=== PATIENT | male | born 1935 | race Caucasian/White ===

== ENCOUNTER 2016-06-03 12:18 | Outpatient (CLI) | payer MEDICARE, OTHER | END 2016-06-03 12:19 | disposition home or self-care (01) | DX: E78.5 Hyperlipidemia, unspecified (principal) ==

== ENCOUNTER 2017-02-03 00:03 | Outpatient (CLI) | payer MEDICARE, OTHER | END 2017-02-03 00:04 | disposition EMS.NT | LOC: EMS 00:03 | PROVIDERS: ATTEND Surgery | DX: Z03.89 Encounter for observation for other suspected diseases and conditions ruled out (principal); W06.XXXA Fall from bed, initial encounter; Y92.003 Bedroom of unspecified non-institutional (private) residence as the place of occurrence of the external cause ==

== ENCOUNTER 2017-02-03 10:45 | Outpatient (CLI) | payer MEDICARE, OTHER | END 2017-02-03 10:46 | disposition critical access hospital (66) | LOC: EMS 10:45 | PROVIDERS: ATTEND Surgery | DX: R53.1 Weakness (principal); R39.12 Poor urinary stream; W06.XXXA Fall from bed, initial encounter; Y92.003 Bedroom of unspecified non-institutional (private) residence as the place of occurrence of the external cause | CPT/HCPCS: A0425; A0429 ==

== ENCOUNTER 2017-02-03 11:10 | Emergency (ER) | payer MEDICARE, OTHER ==
[2017-02-03] MEDS ORDERED: SODIUM CHLORIDE 0.9% 500 ML IV ONE (11:28)
[2017-02-03 12:05] LABS: ALBUMIN/GLOBULIN RATIO 1.3 (1.0-2.2); BILIRUBIN,TOTAL 4.1 mg/dL (0.2-1.0); CALCIUM 8.6 mg/dL (8.5-10.3); CREATININE 1.2 mg/dL (0.6-1.2); POTASSIUM 3.5 mmol/L (3.5-5.0); TOTAL PROTEIN 6.6 g/dL (6.7-8.2)
[2017-02-03] MEDS ORDERED: SODIUM CHLORIDE 0.9% 1,000 ML IV ONE (12:32)
[2017-02-03 12:58] LABS: BASOPHILS % (AUTO) 0.3 %; EOSINOPHILS # (AUTO) 0.1 10^3/uL (0.0-0.7); EOSINOPHILS % (AUTO) 0.4 %; HCT - HEMATOCRIT 38.1 % (42.0-52.0); LYMPHOCYTES # (AUTO) 0.8 10^3/uL (1.5-3.5); LYMPHOCYTES % (AUTO) 6.3 %; MEAN CORPUSCULAR HGB CONC 34.1 g/dL (32.0-36.0); MEAN PLATELET VOLUME 8.3 fL (7.4-11.4); MONOCYTES % (AUTO) 7.1 %; NEUTROPHILS # (AUTO) 11.5 10^3/uL (1.5-6.6); NEUTROPHILS % (AUTO) 85.9 %; RED BLOOD COUNT 4.19 10^6/uL (4.70-6.10); UNCORRECTED WHITE BLOOD COUNT 13.3 x10^3/uL; WHITE BLOOD COUNT 13.3 x10^3/uL (4.8-10.8)
--- NOTE | 2017-02-03 14:05 | ED Physician Documentation ---
History of Present Illness - Stated complaint Stated Complaint: WEAKNESS - Chief complaint Chief Complaint: General - History obtained from History obtained from: Patient, Family - History of Present Illness Timing: Yesterday Pain level max: 0 Pain level now: 0 Improved by: nothing Worsened by: nothing - Additonal information Additional information: Patient is an 81-year-old male who presents to the emergency department with increasing weakness over the past 24 hours. States he has had increasing urinary frequency and dysuria, similar to prior UTIs in the past. Has had a decreased appetite as well. No abdominal pain. No fevers. No vomiting. Has been on penicillin recently for a potential dental infection following a filling. States that he had a hard time getting up out of bed today and had to call the ambulance to help him up. Review of Systems Constitutional: denies: Fever, Chills Ears: denies: Ear pain Nose: denies: Rhinorrhea / runny nose, Congestion Respiratory: denies: Cough GI: denies: Abdominal Pain, Nausea, Vomiting, Diarrhea : reports: Dysuria, Frequency, Hesitancy Skin: denies: Rash Musculoskeletal: denies: Neck pain, Back pain PD PAST MEDICAL HISTORY - Past Medical History Cardiovascular: Coronary artery disease Respiratory: Sleep apnea, CPAP use Neuro: None Endocrine/Autoimmune: Type 2 diabetes GI: Colon polyps : Benign prostate hypertrophy HEENT: None Psych: Claustrophobia Musculoskeletal: Gout Derm: - Past Surgical History Past Surgical History: Yes General: Colonoscopy Cardiovascular: Coronary stent HEENT: Cataracts, Tonsil/Adenoidectomy Derm: Skin cancer surgery - Present Medications Home Medications: Ambulatory Orders Medication Instructions Recorded Confirmed Aspirin 325 mg PO DAILY 03/18/14 02/03/17 Atorvastatin [Lipitor] 20 mg PO DAILY 03/18/14 02/03/17 Chlorthalidone 25 mg PO DAILY 03/18/14 02/03/17 Cholecalciferol (Vitamin D3) 1,000 mg PO DAILY 03/18/14 02/03/17 [Vitamin D] Cyanocobalamin (Vitamin B-12) 1,000 mcg IM Q30D 03/18/14 02/03/17 [B-12] Metoprolol Tartrate 50 mg PO BID 03/18/14 02/03/17 Penicillin Vk 4 tab PO QID 02/03/17 02/03/17 Sulfamethox/Trimeth 800/160 1 each PO BID #14 tablet 02/03/17 [Bactrim Ds 800/160] - Allergies Allergies/Adverse Reactions: Allergies Allergy/AdvReac Type Severity Reaction Status Date / Time No Known Drug Allergies Allergy Verified 02/03/17 11:21 - Social History Does the pt smoke?: No Smoking Status: Never smoker Does the pt drink ETOH?: Yes Does the pt have substance abuse?: No - Immunizations Immunizations are current?: No Immunizations: TDAP >10years/unknown - POLST Patient has POLST: No PD ED PE NORMAL - Vitals Vital signs reviewed: Yes - General General: Alert and oriented X 3, No acute distress - HEENT HEENT: Moist mucous membranes - Neck Neck: Supple, no meningeal sign - Cardiac Cardiac: RRR, Strong equal pulses - Respiratory Respiratory: No respiratory distress, Clear bilaterally - Abdomen Abdomen: Soft, Non tender, Non distended - Back Back: No CVA TTP, No spinal TTP - Derm Derm: Warm and dry - Neuro Neuro: Alert and oriented X 3 - Psych Psych: Normal mood, Normal affect Results - Vitals Vitals: Vital Signs - 24 hr 02/03/17 02/03/17 02/03/17 11:16 12:19 14:03 Temperature 36.5 C Heart Rate 90 84 69 Respiratory 16 16 16 Rate Blood Pressure 139/64 H 138/55 H 133/51 H O2 Saturation 97 96 98 02/03/17 02/03/17 15:06 16:17 Temperature 36.9 C Heart Rate 80 72 Respiratory 16 16 Rate Blood Pressure 131/97 H 132/74 H O2 Saturation 98 99 Oxygen O2 Source [With Activity] Room air O2 Source [Without Activity] Room air O2 Source Room air - Labs Labs: Laboratory Tests 02/03/17 02/03/17 02/03/17 11:40 11:40 14:00 WBC 13.3 H RBC 4.19 L Hgb 13.0 L Hct 38.1 L MCV 91.0 MCH 31.0 MCHC 34.1 RDW 15.0 Plt Count 132 MPV 8.3 Neut # 11.5 H Lymph # 0.8 L [place] # 1.0 Eos # 0.1 Baso # 0.0 Absolute Nucleated RBC 0.00 Nucleated RBC % 0.0 Sodium 132 L Potassium 3.5 Chloride 98 L Carbon Dioxide 25 Anion Gap 9.0 BUN 22 H Creatinine 1.2 Estimated GFR (MDRD) 58 L Glucose 183 H Calcium 8.6 Total Bilirubin 4.1 H AST 17 ALT 15 Alkaline Phosphatase 66 Total Protein 6.6 L Albumin 3.7 Globulin 2.9 Albumin/Globulin Ratio 1.3 Lipase 23 Urine Color YELLOW Urine Clarity HAZY Urine pH 6.0 Ur Specific [place] 1.010 Urine Protein NEGATIVE Urine Glucose (UA) NEGATIVE Urine Ketones NEGATIVE Urine Occult Blood NEGATIVE Urine Nitrite POSITIVE H Urine Bilirubin NEGATIVE Urine Urobilinogen 0.2 (NORMAL) Ur Leukocyte Esterase TRACE H Urine RBC 0-5 Urine WBC 11-25 H Ur Squamous Epith Cells FEW Squamous Urine Bacteria Many H Ur Microscopic Review INDICATED Urine Culture Comments INDICATED PD MEDICAL DECISION MAKING - ED course Complexity details: reviewed results, re-evaluated patient, considered differential, d/w patient, d/w family ED course: Patient is an 81-year-old male who presents to the emergency department with weakness and is found to have a UTI. Given IV Rocephin. Also given IV fluids for dehydration. He is tolerating p.o. without difficulty and ambulating at his baseline. No evidence of sepsis or pyelonephritis. Will place on antibiotics and follow-up with his PCP. Patient and family counseled regarding signs and symptoms for which I believe and urgent re-evaluation would be necessary. Patient with good understanding of and agreement to plan and is comfortable going home at this time This document was made in part using voice recognition software. While efforts are made to proofread this document, sound alike and grammatical errors may occur. Departure - Departure Disposition: 01 Home, Self Care Clinical Impression: Dehydration, Hyponatremia UTI (urinary tract infection) Qualifiers: Urinary tract infection type: acute cystitis Hematuria presence: without hematuria Qualified Code(s): N30.00 - Acute cystitis without hematuria Condition: Good Instructions: ED UTI Cystitis Male Follow-Up: ALEC MASON [Primary Care Provider] - Within 1 week Prescriptions: Sulfamethox/Trimeth 800/160 [Bactrim Ds 800/160] 1 each PO BID #14 tablet Comments: Take all antibiotics until gone. Return if you worsen. Drink plenty of fluid. Discharge Date/Time: 02/03/17 16:17
[2017-02-03 14:31] LABS: BILIRUBIN,URINE NEGATIVE (NEGATIVE)
[2017-02-03 14:32] LABS: UA w/ MICROSCOPIC CHARGE YES
[2017-02-03 14:41] LABS: UR CULTURE IF IND INDICATED
[2017-02-03] MEDS ORDERED: cefTRIAXone 1 GM VIAL IVP STA (15:20)
[2017-02-03] MEDS ORDERED: cefTRIAXone 1 GM VIAL ONE (15:28)
[2017-02-03 16:17] VITALS: BP 132/74
== END 2017-02-03 16:17 | disposition home or self-care (01) ==
LOC: ED 11:10
DX: E86.0 Dehydration (principal); E87.1 Hypo-osmolality and hyponatremia; N30.00 Acute cystitis without hematuria; I25.10 Atherosclerotic heart disease of native coronary artery without angina pectoris; G47.30 Sleep apnea, unspecified; E11.9 Type 2 diabetes mellitus without complications; N40.0 Benign prostatic hyperplasia without lower urinary tract symptoms; M10.9 Gout, unspecified; Z85.828 Personal history of other malignant neoplasm of skin; Z86.010 Personal history of colon polyps; Z79.82 Long term (current) use of aspirin
CPT/HCPCS: 36415; 80053; 81001; 81003; 83690; 85025; 87086; 96361; 96374; 99283; 99284

== ENCOUNTER 2017-02-04 11:13 | Outpatient (CLI) | payer MEDICARE, OTHER | END 2017-02-04 11:14 | disposition EMS.NT | LOC: EMS 11:13 | PROVIDERS: ATTEND Surgery | DX: Z03.89 Encounter for observation for other suspected diseases and conditions ruled out (principal); W18.11XA Fall from or off toilet without subsequent striking against object, initial encounter; Y92.002 Bathroom of unspecified non-institutional (private) residence as the place of occurrence of the external cause ==

== ENCOUNTER 2017-02-04 15:26 | Outpatient (CLI) | payer MEDICARE, OTHER | END 2017-02-04 15:27 | disposition short-term general hospital (02) | LOC: EMS 15:26 | PROVIDERS: ATTEND Surgery | DX: R53.1 Weakness (principal) | CPT/HCPCS: A0425; A0429; A0888 ==

== ENCOUNTER 2017-05-06 11:05 | Outpatient (CLI) | payer MEDICARE, OTHER | END 2017-05-06 11:06 | disposition home or self-care (01) | LOC: SC 11:05 | PROVIDERS: ATTEND Nurse Practitioner Family | DX: G47.33 Obstructive sleep apnea (adult) (pediatric) (principal) | CPT/HCPCS: 99214; G0463; 99212 ==

== ENCOUNTER 2018-04-21 09:11 | Outpatient (CLI) | payer MEDICARE, OTHER | END 2018-04-21 09:12 | disposition EMS.NT | LOC: EMS 09:11 | PROVIDERS: ATTEND Surgery | DX: R42 Dizziness and giddiness (principal); W18.30XA Fall on same level, unspecified, initial encounter; Y93.01 Activity, walking, marching and hiking; Y92.008 Other place in unspecified non-institutional (private) residence as the place of occurrence of the external cause ==

== ENCOUNTER 2018-05-12 10:45 | Outpatient (CLI) | payer MEDICARE, OTHER | END 2018-05-12 10:46 | disposition home or self-care (01) | LOC: SC 10:45 | PROVIDERS: ATTEND Nurse Practitioner Family | DX: G47.33 Obstructive sleep apnea (adult) (pediatric) (principal) | CPT/HCPCS: 99214; G0463; 99212 ==

== ENCOUNTER 2018-07-16 09:26 | Outpatient (CLI) | payer MEDICARE, OTHER ==
[2018-07-16 10:18] LABS: ALT ALANINE AMINOTRANSFERASE 18 IU/L (10-60); AST ASPARTATE AMINOTRANSFERASE 23 IU/L (10-42); CHOL/HDL RATIO 3.1 (<5.0); CHOLESTEROL 92 mg/dL; CK- CREATINE KINASE 22 IU/L (22-269); HDL CHOLESTEROL 30 mg/dL; LDL CHOLESTEROL,CALCULATED 38 mg/dL; LDL CHOLESTEROL,DIRECT 45 mg/dL; LDL/HDL RATIO 1.3 (<3.6); VLDL CHOLESTEROL 24 mg/dL
== END 2018-07-16 09:27 | disposition home or self-care (01) ==
LOC: LAB 09:26
PROVIDERS: ATTEND Internal Medicine Cardiovascular Disease
DX: I10 Essential (primary) hypertension (principal); E78.5 Hyperlipidemia, unspecified; I25.810 Atherosclerosis of coronary artery bypass graft(s) without angina pectoris
CPT/HCPCS: 36415; 80061; 82550; 83721; 84450; 84460

== ENCOUNTER 2018-12-14 09:37 | Outpatient (CLI) | payer MEDICARE, OTHER ==
--- NOTE | 2018-12-14 13:15 | XRAY Report ---
Reason: CHRONIC COUGH Procedure Date: 12/14/2018 Accession Number: [id number] / [id number] Procedure: XR - Chest 2 View X-Ray CPT Code: 87546 FULL RESULT: EXAM: CHEST RADIOGRAPHY EXAM DATE: 12/14/2018 10:26 AM. CLINICAL HISTORY: Chronic cough. COMPARISON: RIBS W/PA CHEST LT 03/23/2014 2:53 PM. CHEST 2 VIEW PA/LAT 03/18/2014 10:53 PM. TECHNIQUE: 2 views. FINDINGS: Lungs/Pleura: Lateral radiograph represents a relatively well-rounded hypodensity overlying the lower thoracic spine, retrocardiac region. Not well seen frontally. Remaining lung is clear on frontal radiograph. No pleural effusion or pneumothorax. Mediastinum: Heart and mediastinal contours are unchanged with increased calcifications of the aorta, mild cardiomegaly. Other: None. IMPRESSION: Interval development of a retrocardiac posterior opacity. While this may represent pneumonia, a posterior mediastinal or paraspinal mass may have this appearance. If the clinical scenario is not clear, recommend chest CT. RADIA
== END 2018-12-14 09:38 | disposition home or self-care (01) ==
LOC: DI 09:37
PROVIDERS: ATTEND Internal Medicine
DX: R05 Cough (principal); R91.8 Other nonspecific abnormal finding of lung field
CPT/HCPCS: 71046

== ENCOUNTER 2018-12-21 13:16 | Outpatient (CLI) | payer MEDICARE, OTHER ==
[2018-12-21] MEDS ORDERED: IOVERSOL 320 100 ML VIAL IVP ONE ×2 (13:34→14:03)
--- NOTE | 2018-12-21 14:58 | CT Report ---
Reason: ABN CXR, WT LOSS, COUGH Procedure Date: 12/21/2018 Accession Number: [id number] / [id number] Procedure: CT - CHEST W CPT Code: FULL RESULT: EXAM: CT CHEST EXAM DATE: 12/21/2018 01:49 PM. CLINICAL HISTORY: Abnormal chest x-ray, weight loss and cough. COMPARISONS: CT chest 11/29/2006-report only. TECHNIQUE: Routine helical CT imaging was performed through the chest. IV contrast: None. Reconstructions: Coronal and sagittal. In accordance with CT protocol optimization, one or more of the following dose reduction techniques were utilized for this exam: automated exposure control, adjustment of mA and/or KV based on patient size, or use of iterative reconstructive technique. FINDINGS: Lungs/Pleura: The chest x-ray finding is an approximate 5.7 x 5.7 cm spiculated pleural-based mass in the cgfdgeggs-ydyewpwe-gzirad right lower lobe. There is scattered bilateral scarring. No other focal suspicious abnormality. No pleural effusions. Mediastinum: There are multiple suspicious subcarinal metastatic lymph nodes in the approximate 16 mm maximal diameter range each. There is a suspicious right azygoesophageal node measuring 16 mm maximal diameter, and there is an approximate 9 mm diameter suspicious right hilar lymph node. Bones: Unremarkable. Visualized Abdomen: Cholelithiasis. No evidence of adrenal metastasis. No obvious hepatic mass. Other: None. IMPRESSION: 1. There is a 5.7 cm maximal diameter spiculated pleural-based mass in the vvfwzlxql-hcwevjav-irynun right lower lobe that would be amenable to transbronchial biopsy. 2. Suspicious right hilar, subcarinal and azygoesophageal recess mediastinal nodes. 3. No other significant abnormality. RADIA
== END 2018-12-21 13:17 | disposition home or self-care (01) ==
LOC: DI 13:16
PROVIDERS: ATTEND Internal Medicine
DX: R91.8 Other nonspecific abnormal finding of lung field (principal); R63.4 Abnormal weight loss
CPT/HCPCS: 71260; Q9967

== ENCOUNTER 2019-04-08 14:11 | Outpatient (CLI) | payer MEDICARE, OTHER ==
[2019-04-08 14:33] LABS: BASOPHILS % (AUTO) 0.4 %; EOSINOPHILS # (AUTO) 0.3 10^3/uL (0.0-0.7); EOSINOPHILS % (AUTO) 2.7 %; HGB - HEMOGLOBIN 11.6 g/dL (14.0-18.0); LYMPHOCYTES # (AUTO) 1.7 10^3/uL (1.5-3.5); LYMPHOCYTES % (AUTO) 15.3 %; MEAN CORPUSCULAR HEMOGLOBIN 29.7 pg (27.0-31.0); MEAN CORPUSCULAR HGB CONC 32.1 g/dL (32.0-36.0); MEAN CORPUSCULAR VOLUME 92.6 fL (80.0-94.0); MEAN PLATELET VOLUME 9.2 fL (7.4-11.4); MONOCYTES # (AUTO) 0.7 10^3/uL (0.0-1.0); MONOCYTES % (AUTO) 6.8 %; NEUTROPHILS # (AUTO) 8.1 10^3/uL (1.5-6.6); NEUTROPHILS % (AUTO) 74.3 %; PLT - PLATELET COUNT 237 10^3/uL (130-450); RED CELL DISTRIBUTION WIDTH 15.5 % (12.0-15.0); WHITE BLOOD COUNT 10.9 x10^3/uL (4.8-10.8)
[2019-04-08 14:47] LABS: ALBUMIN 3.4 g/dL (3.2-5.5); ALBUMIN/GLOBULIN RATIO 0.9 (1.0-2.2); BILIRUBIN,TOTAL 1.9 mg/dL (0.2-1.0); CALCIUM 9.4 mg/dL (8.5-10.3); CREATININE 1.1 mg/dL (0.6-1.2); TOTAL PROTEIN 7.1 g/dL (6.7-8.2)
[2019-04-08 14:58] LABS: INR 1.2 (0.8-1.2)
--- NOTE | 2019-04-08 15:09 | XRAY Report ---
Reason: STAGE 3 LUNG NONSMALL CELL Procedure Date: 04/08/2019 Accession Number: [id number] / [id number] Procedure: XR - Chest 2 View X-Ray CPT Code: 15372 Final Report FULL RESULT: EXAM: CHEST RADIOGRAPHY EXAM DATE: 04/08/2019 02:46 PM. CLINICAL HISTORY: Stage III lung nonsmall cell. COMPARISON: CHEST 2 VIEW 12/14/2018 9:42 AM CHEST W/ 12/21/2018 1:39 PM. TECHNIQUE: 2 views. FINDINGS: Lungs/Pleura: Redemonstration of medial right lung base opacity characterized as a mass on the recent CT. The left lung and aerated right lung otherwise demonstrate no superimposed edema or consolidation. There is no sizable pleural effusion or pneumothorax. Mediastinum: Stable appearance of the cardiomediastinal silhouette with mild cardiomegaly and calcifications of the aortic arch. Other: None. IMPRESSION: Redemonstration of known right lung mass without superimposed acute cardiopulmonary abnormality. RADIA
== END 2019-04-08 14:12 | disposition home or self-care (01) ==
LOC: LAB 14:11
PROVIDERS: ATTEND Internal Medicine Gastroenterology
DX: C34.90 Malignant neoplasm of unspecified part of unspecified bronchus or lung (principal)
CPT/HCPCS: 36415; 71046; 80053; 85025; 85610

== ENCOUNTER 2019-04-09 08:28 | Day surgery (SDC) | payer MEDICARE, OTHER ==
[2019-04-09] MEDS ORDERED: LACTATED RINGERS 1,000 ML IV ONE (08:35)
--- NOTE | 2019-04-09 09:25 | ANESTHESIA ---
Pre-Anesthesia VS, & Labs - Diagnosis Lung Cancer, stage 3 - Procedure placement of portacath Vital Signs: Temp Pulse Resp BP Pulse Ox 36.1 C L 81 16 124/72 99 04/09/19 08:41 04/09/19 08:41 04/09/19 08:41 04/09/19 08:41 04/09/19 08:41 Height 5 ft 9 in Weight (kg) 78.9 kg Body Mass Index 26.3 - NPO >8 hours - Lab Results Current Lab Results: Laboratory Tests 04/09/19 08:58: POC Whole Bld Glucose 105 H Home Medications and Allergies Aspirin 325 mg PO DAILY 03/18/14 Atorvastatin [Lipitor] 20 mg PO DAILY 03/18/14 Chlorthalidone 25 mg PO DAILY 03/18/14 Cholecalciferol (Vitamin D3) [Vitamin D] 1,000 mg PO DAILY 03/18/14 Cyanocobalamin (Vitamin B-12) [B-12] 1,000 mcg IM Q30D 03/18/14 Metoprolol Tartrate 50 mg PO BID 03/18/14 Allergies/Adverse Reactions: Allergies Allergy/AdvReac Type Severity Reaction Status Date / Time No Known Drug Allergies Allergy Verified 03/31/19 10:13 Anes History & Medical History - Medical History Cardiovascular: reports: Coronary artery disease (S/P stentsx2) Pulmonary: reports: Sleep apnea, CPAP use, Other (Lung cancer) Gastrointestinal: reports: Colon polyps Urinary: reports: Benign prostate hypertrophy Neuro: reports: None Musculoskeletal: reports: Gout Endocrine/Autoimmune: reports: None Blood Disorders: reports: None Skin: reports: None Smoking Status: Never smoker Psychosocial: reports: No issues indicated - Surgical History General: Colonoscopy Eyes Ears Nose Throat (EENT): Cataracts, Tonsil/Adenoidectomy Cardiothoracic: Coronary stent Urologic: Prostatic surgery Dermatologic: Skin cancer surgery Exam General: Alert, Oriented x3, Cooperative, No acute distress Dental: WNL Mouth Openin Fingerbreadth Neck Mobility: Normal Mallampati classification: II Thyromental Distance: greater than 6 cm Respiratory: Lungs clear, Normal breath sounds, No respiratory distress, Other (cough) Cardiovascular: Regular rate, Normal S1, Normal S2, No murmurs Mental/Cognitive Status: Alert/Oriented X3, Normal for patient Plan Anesthesia Type: MAC Consent for Procedure(s) Verified and Reviewed: Yes Code Status: Attempt Resuscitation ASA classification: 3-Severe systemic disease Is this case an emergency?: No
[2019-04-09] MEDS ORDERED: PROPOFOL 200 MG/20 ML VIAL IVP ONE (10:42)
[2019-04-09] MEDS ORDERED: fentaNYL 100 MCG/2 ML VIAL IVP ONE (10:42)
[2019-04-09] MEDS ORDERED: ceFAZolin 1 GM VIAL IR ONE (11:21)
[2019-04-09] MEDS ORDERED: LIDOCAINE 1% 50 ML MDV SUBQ ONE ×2 (11:22)
[2019-04-09] MEDS ORDERED: ONDANSETRON 4 MG/2 ML VIAL IVP PRN (11:46)
[2019-04-09] MEDS ORDERED: ACETAMINOPHEN 325 MG TABLET PO PRN (11:46)
[2019-04-09] MEDS ORDERED: IBUPROFEN 600 MG TABLET PO PRN (11:46)
[2019-04-09] MEDS ORDERED: oxyCODONE 5 MG TABLET PO PRN (11:46)
[2019-04-09 12:04] VITALS: BP 114/64
--- NOTE | 2019-04-09 13:08 | XRAY Report ---
Reason: s/p port placement Procedure Date: 04/09/2019 Accession Number: [id number] / [id number] Procedure: XR - Chest 1 View X-Ray CPT Code: 47071 Final Report FULL RESULT: EXAM: CHEST RADIOGRAPHY EXAM DATE: 04/09/2019 12:04 PM. CLINICAL HISTORY: Status post port placement. COMPARISON: CHEST 2 VIEW 04/08/2019 2:34 PM. TECHNIQUE: 1 view. FINDINGS: Lungs/Pleura: No pneumothorax identified. Bibasilar atelectasis. Mediastinum: Heart size stable and upper limits of normal Other: Interval placement of port left chest. Distal catheter tip at the SVC. IMPRESSION: Distal tip of port catheter at the SVC. No pneumothorax. RADIA
--- NOTE | 2019-04-09 14:34 | PROCEDURE REPORT ---
DATE OF SERVICE: 04/09/2019 Physician: Manas Richard MD PREOPERATIVE DIAGNOSIS: Lung cancer. POSTOPERATIVE DIAGNOSIS: Lung cancer. PROCEDURE PERFORMED: Insertion of PowerPort implantable venous access device. ANESTHESIA: Local plus monitored anesthesia care by Elen Ryan CRNA. SURGEON: Manas Richard MD ESTIMATED BLOOD LOSS: 5 mL. COMPLICATIONS: None. FINDINGS: A standard profile single-lumen PowerPort reservoir was placed in the left infraclavicular fossa. Catheter tip was located in the superior vena cava. INDICATIONS: Rubén Stein is an 83-year-old gentleman with a recent diagnosis of lung cancer. He is u ndergoing palliative chemoradiation therapy and advised to undergo placement of an implantable venous access device to facilitate same. TECHNIQUE: After informed consent, the patient was taken to the operating room where he was sedated and monitored. Preoperative preparation included application of sequential calf compression boots, a dministration of 2 grams cefazolin intravenously within an hour of the incision. His anterior chest wall had been clipped in ASU and then anterior neck was prepared with ChloraPrep solution and draped in the usual sterile fashion. 1% lidocaine plain was used for local infiltration anesthesia. Approx imately 20 mL was used. The patient was placed in steep Trendelenburg position and a needle and syri nge were used to access the left subclavian vein via an infraclavicular approach. The vein was acces sed on the first pass. A guidewire was passed into the central venous circulation. The tract was di lated and an 8-[place] Silastic catheter was passed into the introducer sheath and entered into the ce ntral venous circulation where the catheter tip was positioned appropriately in the superior vena cav a with fluoroscopy. The breakaway sheath was removed. A 3-cm incision was made extending from the e xit site of the catheter, carried down through subcutaneous tissues, hemostasis achieved with electro cautery. Subcutaneous pocket was created, sufficient size to allow placement of the port. After hem ostasis was assured, the cavity was irrigated with antibiotic solution containing 1 gram cefazolin pe r liter. The reservoir, which had been soaked in antibiotic solution, was then connected to the cath eter after trimming the catheter to appropriate length. The catheter was secured to the hub of the r eservoir using the locking device in the usual fashion. The reservoir was placed in the subcutaneous pocket and secured in place with two 3-0 nylon sutures to the pectoralis muscle fascia. Care was ta ronny to avoid kinking of the catheter in the pocket. After hemostasis again assured, the wound was ir rigated with antibiotic solution, wound closure was then accomplished in layers using continuous 3-0 Vicryl to reapproximate the subcutaneous tissues and 4-0 Monocryl subcuticular skin closure, followed by Dermabond. The reservoir was then accessed percutaneously with a Damon needle and it was seen to aspirate and fl ush easily. The system was flushed with 20 mL of sterile saline. The procedure was then terminated, and the patient was transferred out of the operating room in satisfactory condition. Sponge and nee dle counts were correct x2. No drains used. A followup portable upright chest x-ray is pending. TD: 04/09/2019 11:56
== END 2019-04-09 08:29 | disposition home or self-care (01) ==
LOC: SDS 08:28
PROVIDERS: ATTEND Internal Medicine Gastroenterology
PROC: 02HV33Z Insertion of Infusion Device into Superior Vena Cava, Percutaneous Approach (ICD-10-PCS; 2019-04-09)
PROC: 0JH60WZ Insertion of Totally Implantable Vascular Access Device into Chest Subcutaneous Tissue and Fascia, Open Approach (ICD-10-PCS; principal; 2019-04-09 09:30)
DX: C34.91 Malignant neoplasm of unspecified part of right bronchus or lung (principal); G47.33 Obstructive sleep apnea (adult) (pediatric); I25.10 Atherosclerotic heart disease of native coronary artery without angina pectoris; Z79.899 Other long term (current) drug therapy; Z79.82 Long term (current) use of aspirin; Z51.5 Encounter for palliative care; Z95.5 Presence of coronary angioplasty implant and graft; Z86.39 Personal history of other endocrine, nutritional and metabolic disease
CPT/HCPCS: 71045

== ENCOUNTER 2019-04-23 21:40 | Outpatient (CLI) | payer MEDICARE, OTHER | END 2019-04-23 21:41 | disposition EMS.NT | LOC: EMS 21:40 | PROVIDERS: ATTEND Surgery | DX: S51.812A Laceration without foreign body of left forearm, initial encounter (principal); S61.412A Laceration without foreign body of left hand, initial encounter; S01.81XA Laceration without foreign body of other part of head, initial encounter; W01.190A Fall on same level from slipping, tripping and stumbling with subsequent striking against furniture, initial encounter; Y92.003 Bedroom of unspecified non-institutional (private) residence as the place of occurrence of the external cause ==

== ENCOUNTER 2019-06-10 12:50 | Outpatient (CLI) | payer MEDICARE, OTHER ==
[2019-06-10 16:04] LABS: BASOPHILS % (AUTO) 0.3 %; EOSINOPHILS # (AUTO) 0.2 10^3/uL (0.0-0.7); EOSINOPHILS % (AUTO) 2.5 %; LYMPHOCYTES # (AUTO) 1.5 10^3/uL (1.5-3.5); LYMPHOCYTES % (AUTO) 24.7 %; MEAN CORPUSCULAR HEMOGLOBIN 29.4 pg (27.0-31.0); MEAN CORPUSCULAR HGB CONC 31.5 g/dL (32.0-36.0); MEAN CORPUSCULAR VOLUME 93.5 fL (80.0-94.0); MEAN PLATELET VOLUME 12.1 fL (7.4-11.4); MONOCYTES # (AUTO) 0.3 10^3/uL (0.0-1.0); MONOCYTES % (AUTO) 4.4 %; NEUTROPHILS # (AUTO) 4.1 10^3/uL (1.5-6.6); NEUTROPHILS % (AUTO) 67.1 %; PLT - PLATELET COUNT 57 10^3/uL (130-450); RED BLOOD COUNT 2.14 10^6/uL (4.70-6.10); RED CELL DISTRIBUTION WIDTH 22.2 % (12.0-15.0); WHITE BLOOD COUNT 6.1 x10^3/uL (4.8-10.8)
[2019-06-10 16:20] LABS: ALBUMIN/GLOBULIN RATIO 0.7 (1.0-2.2); BILIRUBIN,TOTAL 3.4 mg/dL (0.2-1.0); CALCIUM 7.3 mg/dL (8.5-10.3); CREATININE 1.7 mg/dL (0.6-1.2); TOTAL PROTEIN 4.8 g/dL (6.7-8.2)
[2019-06-10 16:30] LABS: HGB - HEMOGLOBIN 6.3 g/dL (14.0-18.0)
== END 2019-06-10 23:59 | disposition home or self-care (01) ==
LOC: LAB.R 12:50
DX: R60.9 Edema, unspecified (principal)
CPT/HCPCS: 80053; 85025

== ENCOUNTER 2019-06-10 14:21 | Outpatient (CLI) | payer MEDICARE, OTHER | END 2019-06-10 14:22 | disposition critical access hospital (66) | LOC: EMS 14:21 | PROVIDERS: ATTEND Surgery | DX: R06.02 Shortness of breath (principal); D70.9 Neutropenia, unspecified | CPT/HCPCS: A0425; A0429 ==

== ENCOUNTER 2019-06-10 14:26 | Inpatient (IN) | payer MEDICARE, OTHER ==
--- NOTE | 2019-06-10 14:38 | ED Physician Documentation ---
History of Present Illness - Stated complaint Stated Complaint: WEAK/COUGH - History obtained from History obtained from: Patient, EMS - History of Present Illness Timing: How many days ago (3-4) Pain level max: 0 Pain level now: 0 - Additonal information Additional information: 83-year-old male with a history of squamous cell lung cancer, recently finished his radiation and chemotherapy treatments. Over the past 4 days has developed a dry cough and increasing shortness of breath. Has been using oxygen for the past 3 to 4 days, but needed increased oxygen today, therefore he was sent to the emergency department. He lives at [facility]. Nothing makes this better or worse. His POLST form states full code. He states that he is generally weak as well. Nothing makes it better or worse. He states he spends most of his days in bed. Patient has chronic pancytopenia, received a blood transfusion approximately a week ago. Also has a history of chronic renal failure. Has recurrent hypokalemia recently. Review of Systems Ten Systems: 10 systems reviewed and negative Constitutional: denies: Fever, Chills Ears: denies: Ear pain Nose: denies: Rhinorrhea / runny nose, Congestion Cardiac: denies: Chest pain / pressure Respiratory: reports: Cough GI: denies: Vomiting, Diarrhea Skin: denies: Rash Musculoskeletal: denies: Neck pain, Back pain Neurologic: denies: Headache PD PAST MEDICAL HISTORY - Past Medical History Cardiovascular: Coronary artery disease (S/P stentsx2) Respiratory: Sleep apnea, CPAP use, Other (Lung cancer) Neuro: None Endocrine/Autoimmune: None GI: Colon polyps : Benign prostate hypertrophy HEENT: None Psych: Claustrophobia Musculoskeletal: Gout Derm: None - Past Surgical History Past Surgical History: Yes General: Colonoscopy Cardiovascular: Coronary stent HEENT: Cataracts, Tonsil/Adenoidectomy Derm: Skin cancer surgery - Present Medications Home Medications: Ambulatory Orders Medication Instructions Recorded Confirmed Aspirin 81 mg PO DAILY 03/18/14 05/26/19 Chlorthalidone 25 mg PO DAILY 03/18/14 05/26/19 Cholecalciferol (Vitamin D3) 1,000 mg PO DAILY 03/18/14 05/26/19 [Vitamin D] Cyanocobalamin (Vitamin B-12) 1,000 mcg IM Q30D 03/18/14 05/26/19 [B-12] Midodrine HCl 5 mg PO BID 05/19/19 05/26/19 Multivitamin [Multiple Vitamins] 1 tab PO DAILY 05/26/19 05/26/19 Potassium Chloride [K-Dur] 20 meq PO DAILY 06/02/19 06/02/19 - Allergies Allergies/Adverse Reactions: Allergies Allergy/AdvReac Type Severity Reaction Status Date / Time No Known Drug Allergies Allergy Verified 05/26/19 12:16 - Social History Does the pt smoke?: No Smoking Status: Never smoker Does the pt drink ETOH?: Yes Does the pt have substance abuse?: No - Immunizations Immunizations are current?: No Immunizations: TDAP >10years/unknown - POLST Patient has POLST: No PD ED PE NORMAL - Vitals Vital signs reviewed: Yes - General General: Alert and oriented X 3, No acute distress - HEENT HEENT: Moist mucous membranes - Neck Neck: Supple, no meningeal sign - Cardiac Cardiac: RRR - Respiratory Respiratory: No respiratory distress, Other (Rhonchi bilaterally) - Abdomen Abdomen: Soft, Non tender, Non distended - Derm Derm: Warm and dry - Extremities Extremities: No edema - Neuro Neuro: Alert and oriented X 3 Results - Vitals Vitals: Vital Signs - 24 hr 06/10/19 06/10/19 06/10/19 14:33 14:34 16:00 Temperature 37.5 C Heart Rate 101 H 99 Respiratory 18 20 Rate Blood Pressure 146/70 H 138/62 H O2 Saturation 94 84 L 100 Oxygen O2 Source [] Room air O2 Source [] Room air O2 Source Nasal cannula Oxygen Flow Rate 2 - Labs Labs: Laboratory Tests 06/10/19 06/10/19 06/10/19 14:55 15:34 15:34 WBC 8.0 RBC 2.25 L Hgb 6.5 L* Hct 20.9 L MCV 92.9 MCH 28.9 MCHC 31.1 L RDW 22.2 H Plt Count 60 L MPV 10.9 Neut # (Auto) 5.1 Lymph # (Auto) 2.3 Rich # (Auto) 0.3 Eos # (Auto) 0.2 Baso # (Auto) 0.0 Absolute Nucleated RBC 0.04 Nucleated RBC % 0.5 Manual Slide Review Indicated Platelet Estimate DECREASED (<130,000) Platelet Morphology NORMAL APPEARANCE RBC Morph Micro Appear 2+ OVALOCYTES Sodium 144 Potassium 2.2 L* Chloride 107 Carbon Dioxide 29 Anion Gap 8.0 BUN 69 H Creatinine 1.8 H Estimated GFR (MDRD) 36 L Glucose 124 H Lactic Acid Calcium 7.5 L Total Bilirubin 3.8 H AST 29 ALT 14 Alkaline Phosphatase 83 Total Protein 5.1 L Albumin 2.0 L Globulin 3.1 Albumin/Globulin Ratio 0.6 L Lipase 31 Urine Color Urine Clarity Urine pH Ur Specific [place] Urine Protein Urine Glucose (UA) Urine Ketones Urine Occult Blood Urine Nitrite Urine Bilirubin Urine Urobilinogen Ur Leukocyte Esterase Urine RBC Urine WBC Ur Squamous Epith Cells Amorphous Sediment Urine Bacteria Urine Casts Ur Microscopic Review Urine Culture Comments Influenza A (Rapid) Negative Influenza B (Rapid) Negative 06/10/19 06/10/19 15:34 15:45 WBC RBC Hgb Hct MCV MCH MCHC RDW Plt Count MPV Neut # (Auto) Lymph # (Auto) Rich # (Auto) Eos # (Auto) Baso # (Auto) Absolute Nucleated RBC Nucleated RBC % Manual Slide Review Platelet Estimate Platelet Morphology RBC Morph Micro Appear Sodium Potassium Chloride Carbon Dioxide Anion Gap BUN Creatinine Estimated GFR (MDRD) Glucose Lactic Acid 1.2 Calcium Total Bilirubin AST ALT Alkaline Phosphatase Total Protein Albumin Globulin Albumin/Globulin Ratio Lipase Urine Color DARK YELLOW Urine Clarity HAZY Urine pH 5.5 Ur Specific [place] 1.020 Urine Protein 30 H Urine Glucose (UA) NEGATIVE Urine Ketones NEGATIVE Urine Occult Blood LARGE H Urine Nitrite NEGATIVE Urine Bilirubin NEGATIVE Urine Urobilinogen 1 (NORMAL) Ur Leukocyte Esterase NEGATIVE Urine RBC 11-25 H Urine WBC 4-5 Ur Squamous Epith Cells RARE Squamous Amorphous Sediment Few Urine Bacteria None Seen Urine Casts 3-5 Hyaline Casts Ur Microscopic Review INDICATED Urine Culture Comments NOT INDICATED Influenza A (Rapid) Influenza B (Rapid) - Rads (name of study) Chest x-ray Radiology: Prelim report reviewed, EMP read contemporaneously, See rad report (1. Increased interstitial markings and peribronchial cuffing are nonspecific but can be seen in the setting of reactive airways disease, bronchitis or viral infection. 2. Left-sided Port-A-Cath redemonstrated. ) PD MEDICAL DECISION MAKING - ED course Complexity details: reviewed results, re-evaluated patient, considered differential, d/w patient, d/w strategic solutions consultant ED course: 83-year-old male with a history of squamous cell lung cancer, recently finished his radiation treatments. Has been having increasing hypoxia. He has increased interstitial markings and peribronchial cuffing on chest x-ray, unclear if this is from a viral infection or residual from his lung cancer radiation. He is significantly anemic and significantly hypokalemic. These will both need to be replaced as well. Potassium replacement was started in the emergency department through his port. We will admit the patient for further care. Discussed the case with Dr. Faust, hospitalist who accepts This document was made in part using voice recognition software. While efforts are made to proofread this document, sound alike and grammatical errors may occur. Patient is 84% on room air. Departure - Departure Disposition: 66 [facility] DC/Xfer Clinical Impression: Hypoxemia, Hypokalemia, Thrombocytopenia, Weakness Renal failure Qualifiers: Renal failure chronicity: chronic Chronic kidney disease stage: unspecified stage Qualified Code(s): N18.9 - Chronic kidney disease, unspecified Anemia Qualifiers: Anemia type: unspecified type Qualified Code(s): D64.9 - Anemia, unspecified Condition: Stable
--- NOTE | 2019-06-10 15:06 | XRAY Report ---
Reason: cough Procedure Date: 06/10/2019 Accession Number: [id number] / [id number] Procedure: XR - Chest 1 View X-Ray CPT Code: 90503 Final Report FULL RESULT: EXAM: CHEST RADIOGRAPHY EXAM DATE: 06/10/2019 02:47 PM. CLINICAL HISTORY: Cough. COMPARISON: CHEST 1 VIEW 04/09/2019 11:46 AM. TECHNIQUE: 1 view. FINDINGS: Lungs/Pleura: increased interstitial markings and peribronchial cuffing are nonspecific but can be seen in the setting of reactive airways disease, bronchitis or viral infection. Small right-sided pleural effusion. Mediastinum: Within exam limitations, the cardiomediastinal contour is normal. Other: None. IMPRESSION: 1. Increased interstitial markings and peribronchial cuffing are nonspecific but can be seen in the setting of reactive airways disease, bronchitis or viral infection. 2. Left-sided Port-A-Cath redemonstrated. RADIA
[2019-06-10 15:38] LABS: BASOPHILS % (AUTO) 0.2 %; EOSINOPHILS # (AUTO) 0.2 10^3/uL (0.0-0.7); EOSINOPHILS % (AUTO) 2.5 %; LYMPHOCYTES # (AUTO) 2.3 10^3/uL (1.5-3.5); LYMPHOCYTES % (AUTO) 28.6 %; MEAN CORPUSCULAR HEMOGLOBIN 28.9 pg (27.0-31.0); MEAN CORPUSCULAR HGB CONC 31.1 g/dL (32.0-36.0); MEAN CORPUSCULAR VOLUME 92.9 fL (80.0-94.0); MEAN PLATELET VOLUME 10.9 fL (7.4-11.4); MONOCYTES # (AUTO) 0.3 10^3/uL (0.0-1.0); NEUTROPHILS # (AUTO) 5.1 10^3/uL (1.5-6.6); NEUTROPHILS % (AUTO) 63.8 %; PLT - PLATELET COUNT 60 10^3/uL (130-450); RED BLOOD COUNT 2.25 10^6/uL (4.70-6.10); RED CELL DISTRIBUTION WIDTH 22.2 % (12.0-15.0)
[2019-06-10 15:43] LABS: HGB - HEMOGLOBIN 6.5 g/dL (14.0-18.0)
[2019-06-10 15:53] LABS: ALBUMIN/GLOBULIN RATIO 0.6 (1.0-2.2); BILIRUBIN,TOTAL 3.8 mg/dL (0.2-1.0); CALCIUM 7.5 mg/dL (8.5-10.3); CREATININE 1.8 mg/dL (0.6-1.2); TOTAL PROTEIN 5.1 g/dL (6.7-8.2)
[2019-06-10 15:56] LABS: BILIRUBIN,URINE NEGATIVE (NEGATIVE); GLUCOSE, URINE (UA) NEGATIVE (NEGATIVE); KETONES,URINE (UA) NEGATIVE (NEGATIVE); LEUKOCYTE ESTERASE, URINE NEGATIVE (NEGATIVE); NITRITE,URINE NEGATIVE (NEGATIVE); OCCULT BLOOD,URINE LARGE (NEGATIVE); PH,URINE 5.5 PH (5.0-7.5); PROTEIN,URINE 30 mg/dL (NEGATIVE); UROBILINOGEN,URINE 1 (NORMAL) E.U./dL (NORMAL)
[2019-06-10] MEDS ORDERED: POTASSIUM CHLOR 20 MEQ/100 ML 20 MEQ/100 ML BAG IV ONE (16:00)
[2019-06-10 16:01] LABS: CLARITY,URINE HAZY (CLEAR)
[2019-06-10 16:06] LABS: PLATELET ESTIMATE, MANUAL DECREASED (<130,000) (NORMAL); PLATELET MORPHOLOGY NORMAL APPEARANCE (NORMAL)
[2019-06-10 16:12] LABS: AMORPHOUS SEDIMENT,UR Few /LPF; BACTERIA,URINE None Seen /HPF (None Seen); CASTS, URINE 3-5 Hyaline Casts /LPF; SQUAMOUS EPITHELIAL CELL,UR RARE Squamous (<= Few)
[2019-06-10] MEDS ORDERED: ACETAMINOPHEN 325 MG TABLET PO PRN (16:29)
[2019-06-10] MEDS ORDERED: ONDANSETRON 4 MG/2 ML VIAL IVP PRN (16:29)
[2019-06-10] MEDS ORDERED: ONDANSETRON ODT 4 MG TABLET TL PRN (16:29)
[2019-06-10 16:36] LABS: MAGNESIUM 2.3 mg/dL (1.7-2.8); PHOSPHORUS 3.7 mg/dL (2.5-4.6)
[2019-06-10] MEDS ORDERED: SODIUM CHLORIDE 0.9% 1,000 ML IV SCH (17:00)
[2019-06-10] MEDS: SODIUM CHLORIDE FLUSH 0.9% 10 ML SYRINGE IVP SCH (18:07)
--- NOTE | 2019-06-10 19:17 | HISTORY & PHYSICAL EXAMINATION ---
DATE OF SERVICE: 06/10/2019 Physician: Jenny Faust MD PRIMARY CARE PROVIDER: Nilay Mcgarry MD, [facility] ONCOLOGIST: Karthikeyan Flores MD, [facility] ADMITTING PROVIDER: Jenny Faust MD CHIEF COMPLAINT: Severe weakness and occasional cough. HISTORY OF PRESENT ILLNESS: The patient is a very pleasant 83-year-old white male who has been coughing since approximately August of last year. He presented with 3 months of coughing, a 25-pound weight loss in November 2018. 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 Between November and now the patient approximately has lost 35 pounds. Poor appetite. He was offered triple therapy including surgery, chemoradiation/radiation and opted for chemo and radiation, no surgery. He has been on carboplatin and Taxol. Cycle 4 was delayed due to syncope, anemia, neutropenia in hospitalization at [facility]. [place] it was too difficult to travel back and forth. He was living at a halfway facility until he asked to please come to [facility] this month. It would be easier on his for traveling. However, with the COVID-19 concerns, his is only allowed to deliver food or items and then she needs to go. She is not visiting him. He has no appetite, not eating very much, and lives on ice chips. On top of that, he has orthostatic hypotension. So when he tries to get up and walk, he will nearly pass out because of it. He says the last time he got out of bed to walk was probably 3-4 weeks ago. In the last 4 days, he was reportedly developing a dry cough and increasing shortness of breath. He frowns at me and says "that is not why I came here." He insists that the reason he is here is because of increasing weakness, increasing orthostatic symptoms, and "dehydration" because he feels like he has not been eating or drinking enough. He was placed on oxygen for the last 3-4 days, but has had increased oxygen needs and therefore was brought to the emergency room. He denies fever or chills. Overall, just feels miserable as subsequent effect of the chemo and radiation. Cough is nonproductive. Says that it is been nonproductive the entire time he has had cancer. No hemoptysis. Denies chest congestion, chest pain. There is no abdominal pain, or dysuria. He denies diarrhea. 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 As a complication of his cancer treatment, he has also developed [id number] kidney failure, and electrolyte disturbance. He was evaluated by Dr. Los Rizo in the emergency room. His presenting vital signs were 37.5, temperature, a pulse of 101, blood pressure 146/70 and he was 94% on 2 liters nasal cannula. On room air, he is 84% on that. The patient does have interstitial lung disease per his PFTs done for tumor staging. His DLCO is 15. He also has obstructive sleep apnea and requires a face mask. In review of his notes, unclear when his hypoxemia presented. I do not know if his room air saturations were normal when he was admitted to [facility], for instance. On examination, he is a debilitated, elderly male who is quite pale. So weak he could barely lift his head off the bed. He has diffuse crackles on lung exam. He is hypokalemic to 2.3, BUN and creatinine are 68 and 1.7. In March 2019, he was 27 and 1.0. Total bilirubin is 3.8. He has had chronic hyperbilirubinemia for many years now. His bili usually runs between 1.7-2.5. It is currently 3.8. Urinalysis had occult blood, 11-25 red cells, 4-5 white cells. Rare squamous. No bacteria. Chest x-ray shows increased interstitial markings and peribronchial cuffing that are nonspecific, but seen in the setting of reactive airways disease, bronchitis, or viral infection. He has a small right-sided pleural effusion. The pleural effusion is chronic. It has been present ever since he had his lung cancer diagnosed last fall. A CT of the chest was reviewed from November 2018 and although he had scattered bilateral scarring, there is no interstitial lung disease noted. In the emergency room, our concern is that of COVID. As such, he has been swabbed. He has had blood cultures, a potassium rider, and maintenance IV fluids, but no fluid bolus. His hemoglobin is 6.3 and 6.5 today. As such, the patient is admitted for acute on chronic kidney disease, symptomatic anemia, and a worsening chest x-ray in context of a possible viral infection. He does not have a fever, white cell count, and no relative leukopenia. PAST MEDICAL HISTORY 1. Orthostatic hypotension. 2. Right lower lobe, stage IIIB squamous cell carcinoma as above. 3. Coronary artery disease with 2 stents in 2011. 4. Hypertension. 5. Hyperlipidemia. 6. Benign prostatic hypertrophy, status post photovaporization. 7. Recurrent UTIs with an admission in 2013. 8. 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 9. Splenomegaly. 10. 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 11. Cataracts. 12. Tonsillectomy. 13. Clarence teeth removal. 14. Severe obstructive sleep apnea since 2007 on CPAP. 15. 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 16. Pancytopenia, subsequent to chemotherapy and radiation therapy. ALLERGIES: NO KNOWN DRUG ALLERGIES. MEDICATIONS 1. Sublingual nitroglycerin. 2. Tylenol 650 hours. 3. Aspirin 81 mg daily. 4. Bisoprolol 2.5 daily. 5. Carboplatin 139 mg every 7 days. 6. Chlorthalidone 25 mg daily. 7. Vitamin D 1000 units daily. 8. B12 1000 mcg IM every 30 days. 9. Fludrocortisone acetate 0.1 mg daily. 10. Midodrine 5 mg b.i.d. 11. Multivitamin daily. 12. Zofran ODT 4 mg every 4 hours as needed. 13. Paclitaxel 59 mg IV every 7 days 14. Potassium 20 mEq daily. 15. Sodium chloride 0.45 1 liter on with his chemotherapy. SOCIAL HISTORY: He never smoked, never really had any problems with alcohol abuse. 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 He has been twice. He had 3 children with his first . He and his second lived in [place] where he was her primary care provider because she is in a wheelchair. As he was diagnosed with cancer last fall, it became increasingly difficult for him to take care of her. CODE STATUS: At this point in time, he wishes to be a FULL CODE. He says that if we code him, he is brain , he still wants us to keep him alive on life support until 06/23/2019. At that point in time, his will receive benefits with regards to Social Security and his pension that make a significant financial difference to her. As such, he wants his body to be kept alive until 06/22/2018. After 06/22/2018 we are to let him go. He states that if he had known what he was going to undergo, and how difficult it was, and had a better understanding from oncology about what this meant, he never would have done any of this. FAMILY HISTORY Dad of a heart attack, but also had lung cancer at his . He was a smoker and a drinker. Mom after 2 MIs. Of 3 siblings, one brother of lung cancer in his 50s, one sister of lung cancer in her 50s and another sister of congestive heart failure. They were all smokers, and in their 50s and 60s. His 3 children are all healthy as far as he knows. No cancer, heart attack, stroke, or diabetes. REVIEW OF SYSTEMS: GENERAL: He states that he has had a 35-pound weight loss since November of last year, daily chills, but no fevers or sweats. 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 CARDIAC: Occasionally gets angina, but he denies orthopnea, does have mild edema since his chemo and radiation. No valvular heart disease. PULMONARY: Daily cough that waxes and wanes since last fall. Worsened over the last 4 days. No hemoptysis. No phlegm production. Exhausted with dyspnea to the point that he has been bedbound for the last 3 to 4 weeks. GASTROINTESTINAL: Anorexia, dysgeusia, dry mouth. No abdominal pain. No change in bowel habits. Scant bowel movements could he does not eat very much. GENITOURINARY: Always has urgency, frequency, has a history of frequent urinations. Urine is dark and tea colored at times, but he denies current dysuria or flank pain. DERMATOLOGIC: Bruises very easily, but no new skin lesions. PSYCHIATRIC: He says that he is not particularly depressed. He is just resigned to his fate. Unhappy that he went through all of this for no gain. Denies suicidal ideation. Remarks that he has multiple guns in his house, but are all locked up, and if he had access to them now, he would not be using them. ENDOCRINE: Denies polydypsia, polyuria, polyphagia. Cold intolerances significant. He is cold all the time. NECK: With shotty adenopathy. No JVD. No bruits. CENTRAL NERVOUS SYSTEM: Denies memory loss, seizures, and occasionally is mentally foggy, but that because of fatigue. Syncope was with chemo and radiation at [facility]. He has severe generalized weakness, no energy, and is completely dependent on the staff at the detention for his activities of daily living. JOINTS: No significant back or joint pain. PHYSICAL EXAMINATION VITAL SIGNS: In the emergency room, he is 37.5, pulse is 99, blood pressure 138/62, respirations 20, and he is 100% on 2 liters. He is 5 feet 9 inch. In looking at his past medical history, he was 97 kg in February 2014, 93 kg in November 2015, 78.9 kilograms March 2019. Today is 78.4 kg. GENERAL: He is pale, fatigued, and the effort of bringing a cup of ice to his mouth completely exhausts him, but he has no tachypnea or respiratory distress. ENT: Shows him to have male pattern baldness, painfully dry oral mucosa that is pale. NECK: Shotty cervical adenopathy, supple, no JVD, no goiter. He has lost enough weight that the jowls of his TMJ fall over his neckline. LUNGS: Coarse upper airway sounds in the right mid lung and right upper lung. Almost rhonchus but no crackles or egophony or wheezing. No use of accessory muscles. HEART: PMI is normally placed with occasional tachycardia with talking to me or trying to sit up during my exam. He has a regular rate and rhythm with a systolic ejection murmur at the left lower sternal border. Port access in the left upper chest wall. Skin is warm, no edema. No fluctuance as I palpate around the port line. SKIN: Overall grayish white color. This gentleman just does not look very good. ABDOMEN: Soft, hypoactive bowel sounds, nontender. No organomegaly noted. EXTREMITIES: 1 to 2+ edema from the mid shins on down. Right leg may be a little bit worse than left. Homans negative. No redness, no heat. Passive range of motion and knee joints and ankle joints, elbows, wrist for me intact. No clubbing or cyanosis. NEUROLOGIC: He is alert, lucid. Occasionally cannot remember specific dates and details, but is able to describe the big picture to me. Speech is low, hoarse occasionally and inaudible at times as he exhausts himself trying to give me his story. I have to wait several times for him to catch his breath back in energy back to be able to speak to me. He follows 2-step commands normally. No focal extremity neurological deficits. However, his weakness is severe enough that he can barely lift his legs off the bed with effort, and then they immediately fall back down again. He is not able to hold his legs up if I lift them for him. LABORATORY/DATA: Chest x-ray shows early interstitial changes, his CBC shows the normal white blood cell count, hemoglobin 6.5, MCV 92, platelets 60. Chemistry has potassium 2.2, BUN 69, creatinine 1.8. Glucose 124. Lactic acid 1.2. Phosphorus, magnesium normal. Total bilirubin 3.8. Albumin 2, total protein 5. Urinalysis has hematuria. Influenza A and B are negative. ASSESSMENT AND PLAN 1. Hypoxemia in a gentleman who has been getting chemo and radiation, has new interstitial changes on chest x-ray, and has significant anemia. Prior to all this, we already had a DLCO of 15. I suspect that his hypoxemia is multifactorial from all of these causes. There is no fever and during his exam, he has no cough. a. Acute inpatient admission. b. Attestation that the patient will be discharged within 96 hours. c. treat all the different factors listed below as a cause of his hypoxemia. 2. New interstitial infiltrate changes on chest x-ray. The most obvious concern is that of COVID-19 and the facility who may or may not have residents with this. At this time, treatment is supportive with regard to oxygen, fluids. We will await swab results, hopefully in the next 48 hours. Check ECHO for LV function to see if this is contributing. 3. Anemia due to chemotherapy. Transfused 2 units of packed cells. Aim for a hemoglobin of over 8. 4. Severe generalized weakness due to his deconditioning, which is then in turn due to his combined radiation and chemo. He is already living in a halfway facility. Hopefully, can return there to continue any type of rehab he may be getting there. 5. Stage III squamous cell lung cancer. In reviewing his notes with Dr. Flores, the patient is scheduled to go on to continue therapy in the form of a MAB upon completion of his Taxol and carboplatin. Again, the patient states that if he had known what he would have gone through, he never would have done treatment in the first place. 6. FULL CODE status until 06/23/2019. He has clear goal set in mind for financial reasons. 7. Wnkmx-ja-mjajudt kidney injury. Suspect this is prerenal azotemia due to lack of p.o. intake, dehydration. Possible chemo effect. We will hydrate, and check a BMP daily. No evidence of obstruction at this time, even though he has a history of benign prostatic hypertrophy. 8. Hypokalemia. Supplement with K riders at this time. 9. Deep venous thrombosis prophylaxis with ISHMAEL hernández. 10. Protein-calorie malnutrition, severe. Nutrition consult will be ordered. TD: 06/10/2019 17:56 REVISED 07/04/2019 [employer] correction supply chain coordinator errors Med#[id number] = paclitaxel orig. signed 06/11/19@0927 MTDD
[2019-06-10] MEDS: POTASSIUM CHLOR 10 MEQ/100 ML 10 MEQ/100 ML BAG IV SCH ×2 (22:30→23:49)
[2019-06-11] MEDS: POTASSIUM CHLOR 10 MEQ/100 ML 10 MEQ/100 ML BAG IV SCH ×10 (00:56→14:10)
[2019-06-11] MEDS: oxyCODONE 5 MG TABLET PO PRN (03:42)
[2019-06-11] MEDS: SODIUM CHLORIDE FLUSH 0.9% 10 ML SYRINGE IVP PRN ×2 (03:49→06:20)
[2019-06-11] MEDS: SODIUM CHLORIDE FLUSH 0.9% 10 ML SYRINGE IVP SCH ×4 (03:49→23:44)
[2019-06-11] MEDS: SODIUM CHLORIDE 0.9% 1,000 ML IV SCH ×5 (04:04→22:06)
[2019-06-11 07:01] LABS: BASOPHILS % (AUTO) 0.3 %; EOSINOPHILS # (AUTO) 0.2 10^3/uL (0.0-0.7); EOSINOPHILS % (AUTO) 3.4 %; HGB - HEMOGLOBIN 8.6 g/dL (14.0-18.0); LYMPHOCYTES # (AUTO) 1.2 10^3/uL (1.5-3.5); LYMPHOCYTES % (AUTO) 19.7 %; MEAN CORPUSCULAR HEMOGLOBIN 30.3 pg (27.0-31.0); MEAN CORPUSCULAR HGB CONC 32.8 g/dL (32.0-36.0); MEAN CORPUSCULAR VOLUME 92.3 fL (80.0-94.0); MEAN PLATELET VOLUME 10.4 fL (7.4-11.4); MONOCYTES # (AUTO) 0.3 10^3/uL (0.0-1.0); MONOCYTES % (AUTO) 4.5 %; NEUTROPHILS # (AUTO) 4.4 10^3/uL (1.5-6.6); NEUTROPHILS % (AUTO) 70.8 %; PLT - PLATELET COUNT 37 10^3/uL (130-450); RED BLOOD COUNT 2.84 10^6/uL (4.70-6.10); RED CELL DISTRIBUTION WIDTH 19.7 % (12.0-15.0); WHITE BLOOD COUNT 6.2 x10^3/uL (4.8-10.8)
--- NOTE | 2019-06-11 07:05 | PHARMACY PROGRESS NOTE ---
- Best Possible Medication History Admit Date and Time: 06/10/19 1629 Processed by: Pharmacy Medication History completed: Yes Secondary Source(s): Facility MAR as ONLY source As the person ultimately responsible for medication therapy, providers are able to order a medication from an existing home medication list in [facility] via the "Reconcile Routine" prior to Confirmation of that medication by patient support tech. Such practice is discouraged except when the physician, in their clinical judgment, deems that a medical need exists for a medication without regard to previous use.
[2019-06-11 07:20] LABS: CALCIUM 7.2 mg/dL (8.5-10.3); CREATININE 1.8 mg/dL (0.6-1.2); MAGNESIUM 2.1 mg/dL (1.7-2.8); PHOSPHORUS 3.7 mg/dL (2.5-4.6)
[2019-06-11] MEDS ORDERED: NITROGLYCERIN SL 0.4 MG TABLET SL PRN (08:27)
[2019-06-11] MEDS ORDERED: CYANOCOBALAMIN 1,000 MCG/ML VIAL IM SCH (08:30)
[2019-06-11] MEDS: MULTIVITAMIN TABLET PO SCH (09:08)
[2019-06-11] MEDS: CHOLECALCIFEROL 1,000 UNIT TABLET PO SCH (09:08)
[2019-06-11] MEDS: BISOPROLOL FUMARATE 2.5 MG PO SCH (09:10)
[2019-06-11] MEDS: FLUDROCORTISONE 0.1 MG TABLET PO SCH (09:16)
--- NOTE | 2019-06-11 09:21 | XRAY Report ---
Reason: worsening hypoxia, Stage IIIB lung cancer Procedure Date: 06/11/2019 Accession Number: [id number] / [id number] Procedure: XR - Chest 1 View X-Ray CPT Code: 82023 Final Report FULL RESULT: EXAM: CHEST RADIOGRAPHY EXAM DATE: 06/11/2019 09:06 AM. CLINICAL HISTORY: Worsening hypoxia, Stage IIIB lung cancer. COMPARISON: CHEST 1 VIEW 06/10/2019 2:28 PM CHEST 1 VIEW 04/09/2019 11:46 AM CHEST 2 VIEW 04/08/2019 2:34 PM. TECHNIQUE: 1 view. FINDINGS: Lungs/Pleura: Progression of interstitial and airspace opacities. Lung volumes are low. No pneumothorax. Small pleural effusions /pleural thickening. Mediastinum: Heart size and mediastinal contour appear stable. Other: Left subclavian portacatheter is stable. IMPRESSION: 1. Mild interval worsening. RADIA
[2019-06-11] MEDS: MIDODRINE 2.5 MG TABLET PO SCH ×2 (12:17→18:09)
--- NOTE | 2019-06-11 14:58 | PROVIDER PROGRESS NOTE ---
Subjective - Prog Note Date Prog Note Date: 06/11/19 Prog Note Time: 14:45 - Subjective Pt reports feeling: Improved Subjective: he is eating a bit. no sob. no cough. just tired. butt aches from being in one position. he is asking for Hospice referral to be opened after that 06/23/19 date. Objective - Vital Signs/Intake & Output Reviewed Vital Signs: Yes Vital Signs: Vital Signs x48h Temp Pulse Resp BP Pulse Ox 06/11/19 13:10 98 92 06/11/19 11:00 36.2 C L 98 18 131/75 H 98 06/11/19 08:00 36.8 C 90 22 156/62 H 93 Intake & Output: Intake & Output 06/08/19 06/09/19 06/10/19 06/11/19 23:59 23:59 23:59 23:59 Intake Total 553.15 3861.517 Output Total 525 Balance 553.15 3336.517 - Objective General Appearance: positive: No acute distress, Alert, Other (still slow to move, voice stronger, he is reaching for food and asking for a warm blanket. skin pinker and he doesn't look so massey) Eyes Bilateral: positive: PERRL, EOMI ENT: positive: Dry mucous membranes (better than yesterday but still dry, not as pale) Neck: positive: No JVD. negative: Stiff neck, Carotid bruit Respiratory: positive: Chest non-tender. negative: Wheezes, Rales, Rhonchi Cardiovascular: positive: Regular rate & rhythm, Systolic murmur. negative: Gallop/S4, Friction rub Abdomen: positive: Non-tender, No organomegaly, Nml bowel sounds, No distention Skin: positive: Dry, Other (cold hands and feet and he's freezing) Extremities: positive: Non-tender, Full ROM, Pedal edema (mild) Neurologic/Psychiatric: positive: Oriented x3, CN's nml (2-12), Motor nml, Weakness (severe) - Lab Results Fish Bones: 06/11/19 06:20 06/11/19 06:20 Other Labs: Lab Results x24hrs 06/11/19 06/11/19 06/10/19 Range/Units 06:20 06:20 15:55 WBC 6.2 (4.8-10.8) x10^3/uL RBC 2.84 L (4.70-6.10) 10^6/uL Hgb 8.6 L (14.0-18.0) g/dL Hct 26.2 L (42.0-52.0) % MCV 92.3 (80.0-94.0) fL MCH 30.3 (27.0-31.0) pg MCHC 32.8 (32.0-36.0) g/dL RDW 19.7 H (12.0-15.0) % Plt Count 37 L (130-450) 10^3/uL MPV 10.4 (7.4-11.4) fL Neut # (Auto) 4.4 (1.5-6.6) 10^3/uL Lymph # (Auto) 1.2 L (1.5-3.5) 10^3/uL [place] # (Auto) 0.3 (0.0-1.0) 10^3/uL Eos # (Auto) 0.2 (0.0-0.7) 10^3/uL Baso # (Auto) 0.0 (0.0-0.1) 10^3/uL Absolute Nucleated RBC 0.02 x10^3/uL Nucleated RBC % 0.3 /100WBC Manual Slide Review Platelet Estimate (NORMAL) Platelet Morphology (NORMAL) RBC Morph Micro Appear (NORMAL) Sodium 143 (135-145) mmol/L Potassium 2.9 L (3.5-5.0) mmol/L Chloride 109 (101-111) mmol/L Carbon Dioxide 28 (21-32) mmol/L Anion Gap 6.0 (6-13) BUN 70 H (6-20) mg/dL Creatinine 1.8 H (0.6-1.2) mg/dL Estimated GFR (MDRD) 36 L (>89) Glucose 120 H (70-100) mg/dL Lactic Acid (0.5-2.2) mmol/L Calcium 7.2 L (8.5-10.3) mg/dL Phosphorus 3.7 (2.5-4.6) mg/dL Magnesium 2.1 (1.7-2.8) mg/dL Total Bilirubin (0.2-1.0) mg/dL AST (10-42) IU/L ALT (10-60) IU/L Alkaline Phosphatase (42-121) IU/L Total Protein (6.7-8.2) g/dL Albumin (3.2-5.5) g/dL Globulin (2.1-4.2) g/dL Albumin/Globulin Ratio (1.0-2.2) Lipase (22-51) U/L Urine Color Urine Clarity (CLEAR) Urine pH (5.0-7.5) PH Ur Specific [place] (1.002-1.030) Urine Protein (NEGATIVE) mg/dL Urine Glucose (UA) (NEGATIVE) mg/dL Urine Ketones (NEGATIVE) mg/dL Urine Occult Blood (NEGATIVE) Urine Nitrite (NEGATIVE) Urine Bilirubin (NEGATIVE) Urine Urobilinogen (NORMAL) E.U./dL Ur Leukocyte Esterase (NEGATIVE) Urine RBC (0-5) /HPF Urine WBC (0-3) /HPF Ur Squamous Epith Cells (<= Few) Amorphous Sediment /LPF Urine Bacteria (None Seen) /HPF Urine Casts /LPF Ur Microscopic Review Urine Culture Comments Influenza A (Rapid) (Negative) Influenza B (Rapid) (Negative) Blood Type O POSITIVE Antibody Screen NEGATIVE Crossmatch IS Only See Detail 06/10/19 06/10/19 06/10/19 Range/Units 15:45 15:34 15:34 WBC (4.8-10.8) x10^3/uL RBC (4.70-6.10) 10^6/uL Hgb (14.0-18.0) g/dL Hct (42.0-52.0) % MCV (80.0-94.0) fL MCH (27.0-31.0) pg MCHC (32.0-36.0) g/dL RDW (12.0-15.0) % Plt Count (130-450) 10^3/uL MPV (7.4-11.4) fL Neut # (Auto) (1.5-6.6) 10^3/uL Lymph # (Auto) (1.5-3.5) 10^3/uL [place] # (Auto) (0.0-1.0) 10^3/uL Eos # (Auto) (0.0-0.7) 10^3/uL Baso # (Auto) (0.0-0.1) 10^3/uL Absolute Nucleated RBC x10^3/uL Nucleated RBC % /100WBC Manual Slide Review Platelet Estimate (NORMAL) Platelet Morphology (NORMAL) RBC Morph Micro Appear (NORMAL) Sodium (135-145) mmol/L Potassium (3.5-5.0) mmol/L Chloride (101-111) mmol/L Carbon Dioxide (21-32) mmol/L Anion Gap (6-13) BUN (6-20) mg/dL Creatinine (0.6-1.2) mg/dL Estimated GFR (MDRD) (>89) Glucose (70-100) mg/dL Lactic Acid 1.2 (0.5-2.2) mmol/L Calcium (8.5-10.3) mg/dL Phosphorus 3.7 (2.5-4.6) mg/dL Magnesium 2.3 (1.7-2.8) mg/dL Total Bilirubin (0.2-1.0) mg/dL AST (10-42) IU/L ALT (10-60) IU/L Alkaline Phosphatase (42-121) IU/L Total Protein (6.7-8.2) g/dL Albumin (3.2-5.5) g/dL Globulin (2.1-4.2) g/dL Albumin/Globulin Ratio (1.0-2.2) Lipase (22-51) U/L Urine Color DARK YELLOW Urine Clarity HAZY (CLEAR) Urine pH 5.5 (5.0-7.5) PH Ur Specific [place] 1.020 (1.002-1.030) Urine Protein 30 H (NEGATIVE) mg/dL Urine Glucose (UA) NEGATIVE (NEGATIVE) mg/dL Urine Ketones NEGATIVE (NEGATIVE) mg/dL Urine Occult Blood LARGE H (NEGATIVE) Urine Nitrite NEGATIVE (NEGATIVE) Urine Bilirubin NEGATIVE (NEGATIVE) Urine Urobilinogen 1 (NORMAL) (NORMAL) E.U./dL Ur Leukocyte Esterase NEGATIVE (NEGATIVE) Urine RBC 11-25 H (0-5) /HPF Urine WBC 4-5 (0-3) /HPF Ur Squamous Epith Cells RARE Squamous (<= Few) Amorphous Sediment Few /LPF Urine Bacteria None Seen (None Seen) /HPF Urine Casts 3-5 Hyaline Casts /LPF Ur Microscopic Review INDICATED Urine Culture Comments NOT INDICATED Influenza A (Rapid) (Negative) Influenza B (Rapid) (Negative) Blood Type Antibody Screen Crossmatch IS Only 06/10/19 06/10/19 06/10/19 Range/Units 15:34 15:34 14:55 WBC 8.0 (4.8-10.8) x10^3/uL RBC 2.25 L (4.70-6.10) 10^6/uL Hgb 6.5 L* (14.0-18.0) g/dL Hct 20.9 L (42.0-52.0) % MCV 92.9 (80.0-94.0) fL MCH 28.9 (27.0-31.0) pg MCHC 31.1 L (32.0-36.0) g/dL RDW 22.2 H (12.0-15.0) % Plt Count 60 L (130-450) 10^3/uL MPV 10.9 (7.4-11.4) fL Neut # (Auto) 5.1 (1.5-6.6) 10^3/uL Lymph # (Auto) 2.3 (1.5-3.5) 10^3/uL [place] # (Auto) 0.3 (0.0-1.0) 10^3/uL Eos # (Auto) 0.2 (0.0-0.7) 10^3/uL Baso # (Auto) 0.0 (0.0-0.1) 10^3/uL Absolute Nucleated RBC 0.04 x10^3/uL Nucleated RBC % 0.5 /100WBC Manual Slide Review Indicated Platelet Estimate DECREASED (<130,000) (NORMAL) Platelet Morphology NORMAL APPEARANCE (NORMAL) RBC Morph Micro Appear 2+ OVALOCYTES (NORMAL) Sodium 144 (135-145) mmol/L Potassium 2.2 L* (3.5-5.0) mmol/L Chloride 107 (101-111) mmol/L Carbon Dioxide 29 (21-32) mmol/L Anion Gap 8.0 (6-13) BUN 69 H (6-20) mg/dL Creatinine 1.8 H (0.6-1.2) mg/dL Estimated GFR (MDRD) 36 L (>89) Glucose 124 H (70-100) mg/dL Lactic Acid (0.5-2.2) mmol/L Calcium 7.5 L (8.5-10.3) mg/dL Phosphorus (2.5-4.6) mg/dL Magnesium (1.7-2.8) mg/dL Total Bilirubin 3.8 H (0.2-1.0) mg/dL AST 29 (10-42) IU/L ALT 14 (10-60) IU/L Alkaline Phosphatase 83 (42-121) IU/L Total Protein 5.1 L (6.7-8.2) g/dL Albumin 2.0 L (3.2-5.5) g/dL Globulin 3.1 (2.1-4.2) g/dL Albumin/Globulin Ratio 0.6 L (1.0-2.2) Lipase 31 (22-51) U/L Urine Color Urine Clarity (CLEAR) Urine pH (5.0-7.5) PH Ur Specific [place] (1.002-1.030) Urine Protein (NEGATIVE) mg/dL Urine Glucose (UA) (NEGATIVE) mg/dL Urine Ketones (NEGATIVE) mg/dL Urine Occult Blood (NEGATIVE) Urine Nitrite (NEGATIVE) Urine Bilirubin (NEGATIVE) Urine Urobilinogen (NORMAL) E.U./dL Ur Leukocyte Esterase (NEGATIVE) Urine RBC (0-5) /HPF Urine WBC (0-3) /HPF Ur Squamous Epith Cells (<= Few) Amorphous Sediment /LPF Urine Bacteria (None Seen) /HPF Urine Casts /LPF Ur Microscopic Review Urine Culture Comments Influenza A (Rapid) Negative (Negative) Influenza B (Rapid) Negative (Negative) Blood Type Antibody Screen Crossmatch IS Only ABX Reporting Has patient been on IV antibiotics over the past 48 hours?: No Assessment/Plan - Problem List (1) Hypoxemia Impression: [place] to be from anemia, and the patient is received chemoradiation. No discrete infiltrate on chest x-ray. Had interstitial changes on x-ray. Already had a very low DLCO even before the start of therapy. Preliminary echocardiogram done to make sure he does not have congestive heart failure and his ejection fraction is 55 to 60%. He is in A. fib. No significant valvular heart disease and he does not have pulmonary hypertension. Final thought is that he may have coded 19. Swab is done. However it will take days to get back. He has no fever, no leukopenia, and does not meet criteria for the disease other than his hypoxia. After 2 units of blood and hydration his O2 need is less and less. He was up to 5 L nasal cannula, and is down to 2 L nasal cannula for 92% sat. And again, he is improving, not deteriorating. Plan: Continue to hydrate in the hopes that the creatinine will improve Continue to monitor CBC to see if he needs more transfusion Case discussed with Dr. Mcgarry. Wanted to give him a heads up that the patient may be able to return back to [facility] in the next 1 to 2 days. (2) Interstitial lung disease Impression: with low DLCO and seen on CXR. Mild interval worsening on cxr today but objectively better. continue to monitor and support. 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 he has responded to prbc transfusion and feels better. but still exhausted. 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 Is no longer going to be on Taxol carboplatinum and was to be transitioned to a Mab. He does not want to do this. After June 22 he would like to transition to hospice. Plan: Hospice referral Qualifiers: Laterality: right Qualified Code(s): C34.91 - Malignant neoplasm of unspecified part of right bronchus or lung (5) Acute on chronic kidney failure Impression: His creatinine has not moved much since admission. He started at 1.8 and is remained as such. We will continue to monitor with continued IV fluids. Qualifiers: Acute renal failure type: unspecified Chronic kidney disease stage: stage 3 (moderate) Qualified Code(s): N17.9 - Acute kidney failure, unspecified; N18.3 - Chronic kidney disease, stage 3 (moderate) (6) Hypokalemia Impression: Has responded to some K riders. Went from 2.2-2.9. We will give another series of K riders this morning. (7) Protein calorie malnutrition Impression: He has no appetite. He feels like he is eating better here than he is at [facility] since he likes the food here better. But it is hard to find any liking for much of anything. Nutrition services and I have spoken to him at length. What ever he wants, we will bring for him.
--- NOTE | 2019-06-11 23:35 | PROVIDER PROGRESS NOTE ---
Inspector [employer] Note - [employer] Note [employer] Note: The patient's son Gagan who is the POA requested a phone call to discuss his father's disposition. I called him at [phone]. Gagan stated that his father expressed that he wants to go on hospice once he is discharged from the hospital. Gagan was concerned given the patient is being ruled out for COVID- 19 if any facility would accept him until the test is negative. He was also wondering what is the best way to proceed with hospice if that is what the benji ross ultimately decides. I informed him that the patient would likely qualify for hospice given his lung cancer and his failure to thrive over the past few weeks. I told him that the big decision will need to be with the patient truly wants to proceed with hospice or not. If Rubén does want hospice, and then we can work with the social workers to see where he can go for this. Gagan is concerned he would not have enough care at home in his current condition to go home on hospice. I also told him it would be difficult to see about discharging to facility with a pending COVID-19 test. I told him that the healthcare social worker can reach out to each facility to see what their protocol is as it will depend on if they have enough rooms to put someone on isolation or not. Gagan is requesting a call from the healthcare social worker tomorrow to discuss options for hospice. I told him that I will notify the daytime provider to discuss this with healthcare social worker and for them to reach out. I told him that if he does not hear back by noon tomorrow, to contact us for further information.
[2019-06-12] MEDS ORDERED: AZITHROMYCIN INJ 500 MG in SODIUM CHLORIDE 0.9% 250 ML IV STA (01:17)
[2019-06-12] MEDS ORDERED: cefTRIAXone 1 GM in SODIUM CHLORIDE 0.9% MINIBAG 100 ML IV STA (01:17)
--- NOTE | 2019-06-12 01:29 | XRAY Report ---
Reason: Worsening hypoxia. Procedure Date: 06/12/2019 Accession Number: [id number] / [id number] Procedure: XR - Chest 1 View X-Ray CPT Code: 17216 Final Report FULL RESULT: EXAM: CHEST RADIOGRAPHY EXAM DATE: 06/12/2019 12:58 AM. CLINICAL HISTORY: Worsening hypoxia. Chronic cough, shortness of breath. COMPARISON: CHEST 2 VIEW 04/08/2019 2:34 PM CHEST 1 VIEW 04/09/2019 11:46 AM CHEST 1 VIEW 06/10/2019 2:28 PM CHEST 1 VIEW 06/11/2019 8:45 AM. TECHNIQUE: 1 view. FINDINGS IMPRESSION: 1. Progressive extensive interstitial and airspace disease, especially when compared to the prior 06/10/2019 study. Lung volumes are small. 2. Small bilateral effusions are noted. No definite pneumothorax. 3. Cardiac silhouette is obscured, but probably within normal limits. 4. Left-sided Port-A-Cath device tip projects over the mid to lower SVC as before. 5. Large laminated gallstone projects over the right upper quadrant, measuring approximately 2.8 cm. RADIA
[2019-06-12] MEDS: MORPHINE 2 MG/ML CARPUJECT IVP PRN ×4 (02:35→09:27)
[2019-06-12] MEDS: SODIUM CHLORIDE FLUSH 0.9% 10 ML SYRINGE IVP SCH ×4 (02:36→16:53)
[2019-06-12 07:07] LABS: BASOPHILS % (AUTO) 0.2 %; EOSINOPHILS # (AUTO) 0.1 10^3/uL (0.0-0.7); EOSINOPHILS % (AUTO) 1.5 %; LYMPHOCYTES # (AUTO) 1.9 10^3/uL (1.5-3.5); LYMPHOCYTES % (AUTO) 20.2 %; MEAN CORPUSCULAR HEMOGLOBIN 30.3 pg (27.0-31.0); MEAN CORPUSCULAR HGB CONC 32.7 g/dL (32.0-36.0); MEAN CORPUSCULAR VOLUME 92.6 fL (80.0-94.0); MEAN PLATELET VOLUME 11.9 fL (7.4-11.4); MONOCYTES # (AUTO) 0.3 10^3/uL (0.0-1.0); MONOCYTES % (AUTO) 3.5 %; NEUTROPHILS # (AUTO) 6.8 10^3/uL (1.5-6.6); NEUTROPHILS % (AUTO) 73.1 %; PLT - PLATELET COUNT 50 10^3/uL (130-450); RED BLOOD COUNT 2.97 10^6/uL (4.70-6.10); RED CELL DISTRIBUTION WIDTH 20.9 % (12.0-15.0); WHITE BLOOD COUNT 9.3 x10^3/uL (4.8-10.8)
[2019-06-12 07:25] LABS: CALCIUM 7.1 mg/dL (8.5-10.3); CREATININE 1.7 mg/dL (0.6-1.2); PHOSPHORUS 3.5 mg/dL (2.5-4.6)
[2019-06-12 07:41] LABS: PLATELET ESTIMATE, MANUAL DECREASED (<130,000) (NORMAL); PLATELET MORPHOLOGY NORMAL APPEARANCE (NORMAL)
[2019-06-12] MEDS ORDERED: POTASSIUM CHLORIDE 20 MEQ TABLET PO SCH (08:00)
[2019-06-12] MEDS: SODIUM CHLORIDE 0.9% 1,000 ML IV SCH (08:08)
[2019-06-12] MEDS: MIDODRINE 2.5 MG TABLET PO SCH (09:25)
[2019-06-12] MEDS: BISOPROLOL FUMARATE 2.5 MG PO SCH (09:26)
[2019-06-12] MEDS: FLUDROCORTISONE 0.1 MG TABLET PO SCH (09:26)
[2019-06-12] MEDS: CHOLECALCIFEROL 1,000 UNIT TABLET PO SCH (09:26)
[2019-06-12] MEDS ORDERED: POTASSIUM CHLORIDE 20 MEQ/15 ML UDC PO SCH (11:00)
[2019-06-12] MEDS ORDERED: LORazepam 1 MG TABLET PO PRN (11:53)
[2019-06-12] MEDS ORDERED: GLYCOPYRROLATE 1 MG/5 ML VIAL SUBQ PRN (11:53)
[2019-06-12] MEDS ORDERED: haloperidoL 1 MG TABLET PO PRN (11:53)
[2019-06-12] MEDS ORDERED: ATROPINE 1% OPHTH DROPS 2 ML SL PRN (11:53)
[2019-06-12] MEDS ORDERED: ACETAMINOPHEN 650 MG SUPP PR PRN (11:53)
[2019-06-12] MEDS ORDERED: bisacodyL 5 MG TABLET PO PRN (11:53)
[2019-06-12] MEDS ORDERED: SENNA SYRUP 8.8 MG/5 ML UDC PO PRN (11:53)
[2019-06-12] MEDS ORDERED: CARBOXYMETHYLCELLULOSE OPHTH DROPS EACHEYE PRN (11:53)
[2019-06-12] MEDS ORDERED: MINERAL OIL/PETROLAT OPHTH OINT EACHEYE PRN (11:53)
[2019-06-12] MEDS ORDERED: HYDROmorphone 2 MG TABLET PO PRN (11:57)
[2019-06-12] MEDS: oxyCODONE 5 MG TABLET PO PRN (12:28)
[2019-06-12] MEDS: HYDROmorphone 0.5 MG/0.5 ML SYRINGE IVP PRN ×2 (12:28→16:53)
[2019-06-12 16:37] VITALS: BP 128/76
[2019-06-12] MEDS: LORazepam 2 MG/ML VIAL IVP PRN (16:54)
--- NOTE | 2019-06-12 17:03 | PROVIDER PROGRESS NOTE ---
Subjective - Prog Note Date Prog Note Date: 06/12/19 Prog Note Time: 17:03 - Subjective Pt reports feeling: Worse (He reports feeling progressively SOB, and requesting change to hospice as soon as possible. He states the only thing that improves his SOB is morphine) Current Medications - Current Medications Current Medications: Acetaminophen (Tylenol) 650 mg PO Q4HR PRN PRN Reason: Pain 1 to 4 Last Admin: 06/11/19 00:02 Dose: 650 mg Acetaminophen (Tylenol) 650 mg NE Q4H PRN PRN Reason: Fever >101 Atropine Sulfate (Isopto Atropine 1% Ophth Drops) 1 - 4 drops SL Q2H PRN PRN Reason: Excessive secretions Bisacodyl (Dulcolax) 10 mg PO DAILY PRN PRN Reason: Constipation Carboxymethylcellulose (Refresh 1% Ophth Drops) 1 drops EACHEYE QID PRN PRN Reason: Dry Eye Glycopyrrolate (Robinul) 0.2 mg SUBQ Q4H PRN PRN Reason: Excessive secretions Haloperidol (Haldol) 1 mg PO Q6H PRN PRN Reason: Nausea / Vomiting Heparin Sodium (Beef Lung) () 30 - 50 unit IVP PRN PRN PRN Reason: Port Protocol (<24 hours) Last Admin: 06/12/19 12:04 Dose: 50 unit Hydromorphone HCl (Dilaudid) 2 mg PO Q6HR PRN PRN Reason: Severe Pain, air hunger, SOB Hydromorphone HCl (Dilaudid Inj Syringe) 0.5 mg IVP Q2H PRN PRN Reason: SOB, air hunger, pain Last Admin: 06/12/19 16:53 Dose: 0.5 mg Lorazepam (Ativan) 1 mg PO Q6H PRN PRN Reason: Anxiety/Agitation Lorazepam (Ativan Inj (Vial)) 1 mg IVP Q6H PRN PRN Reason: Anxiety/Agitation Last Admin: 06/12/19 16:54 Dose: 1 mg Multi-Ingred Cream/Lotion/Oil/Oint (Lubrifresh Pm Ophth Oint) 1 applic EACHEYE QPM PRN PRN Reason: Dry Eye Ondansetron HCl (Zofran Inj) 4 mg IVP Q6HR PRN PRN Reason: Nausea / Vomiting Ondansetron HCl (Zofran Odt) 4 mg TL Q6HR PRN PRN Reason: Nausea / Vomiting Oxycodone HCl (Roxicodone) 5 mg PO Q4HR PRN PRN Reason: Pain 5 to 7 Last Admin: 06/12/19 12:28 Dose: 5 mg Patient Own Med ( Bisoprolol Fumarate [Bisoprolol Fumarate ] 2.5 Mg) 1 each PO DAILY [facility] Last Admin: 06/12/19 09:26 Dose: Not Given Senna (Senokot Syrup) 8.6 mg PO BID PRN PRN Reason: Constipation Sodium Chloride (Normal Saline Flush 0.9%) 10 ml IVP PRN PRN PRN Reason: NEEDED PER PROVIDER ORDERS Last Admin: 06/11/19 03:49 Dose: 10 ml Sodium Chloride (Normal Saline Flush 0.9%) 10 ml IVP 0100,0900,1700 [facility] Last Admin: 06/12/19 16:53 Dose: 10 ml Sodium Chloride (Normal Saline Flush 0.9%) 20 ml IVP PRN PRN PRN Reason: After Blood Draw Last Admin: 06/11/19 06:20 Dose: 20 ml Objective - Vital Signs/Intake & Output Vital Signs: Vital Signs x48h Temp Pulse Pulse Resp BP Pulse Ox 06/12/19 16:45 130 H 93 06/12/19 16:33 36.5 C 139 H 26 H 128/76 80 L 06/12/19 11:53 111 H 28 H 128/71 91 L 06/12/19 09:47 36.2 C L 120 H 26 H 93 Intake & Output: Intake & Output 06/09/19 06/10/19 06/11/19 06/12/19 23:59 23:59 23:59 23:59 Intake Total 553.15 5319.684 2670.833 Output Total 920 500 Balance 553.15 4399.684 2170.833 - Objective General Appearance: positive: No acute distress Eyes Bilateral: positive: Normal inspection, No scleral icterus Respiratory: positive: Breath sounds nml, Other (Tachypnea) Cardiovascular: positive: Tachycardia (Regular rhythm) Abdomen: positive: Non-tender, No organomegaly, No distention Skin: positive: Laceration (cm) Extremities: positive: No pedal edema Neurologic/Psychiatric: positive: Oriented x3 - Lab Results Fish Bones: 06/12/19 06:45 06/12/19 06:45 Other Labs: Lab Results x24hrs 06/12/19 06/12/19 06/12/19 Range/Units 06:45 06:45 06:45 WBC 9.3 (4.8-10.8) x10^3/uL RBC 2.97 L (4.70-6.10) 10^6/uL Hgb 9.0 L (14.0-18.0) g/dL Hct 27.5 L (42.0-52.0) % MCV 92.6 (80.0-94.0) fL MCH 30.3 (27.0-31.0) pg MCHC 32.7 (32.0-36.0) g/dL RDW 20.9 H (12.0-15.0) % Plt Count 50 L (130-450) 10^3/uL MPV 11.9 H (7.4-11.4) fL Neut # (Auto) 6.8 H (1.5-6.6) 10^3/uL Lymph # (Auto) 1.9 (1.5-3.5) 10^3/uL [place] # (Auto) 0.3 (0.0-1.0) 10^3/uL Eos # (Auto) 0.1 (0.0-0.7) 10^3/uL Baso # (Auto) 0.0 (0.0-0.1) 10^3/uL Absolute Nucleated RBC 0.00 x10^3/uL Nucleated RBC % 0.0 /100WBC Manual Slide Review Indicated WBC Morphology NORMAL APPEARANCE (NORMAL) Platelet Estimate DECREASED (<130,000) (NORMAL) Platelet Morphology NORMAL APPEARANCE (NORMAL) RBC Morph Micro Appear 1+ OVALOCYTES (NORMAL) Sodium 144 (135-145) mmol/L Potassium 3.3 L (3.5-5.0) mmol/L Chloride 112 H (101-111) mmol/L Carbon Dioxide 25 (21-32) mmol/L Anion Gap 7.0 (6-13) BUN 68 H (6-20) mg/dL Creatinine 1.7 H (0.6-1.2) mg/dL Estimated GFR (MDRD) 38 L (>89) Glucose 120 H (70-100) mg/dL Calcium 7.1 L (8.5-10.3) mg/dL Phosphorus 3.5 (2.5-4.6) mg/dL Magnesium 2.0 (1.7-2.8) mg/dL B-Natriuretic Peptide 357 H (5-100) pg/mL - Diagnostic Imaging Diagnostic Imaging Results: positive: Final report reviewed (Imaging personally reviewed.) Assessment/Plan - Problem List (1) Acute hypoxemic respiratory failure Impression: Worsening SOB and extensive interstitial and airspace disease on CXR 06/12/2019 compared to previous day. Already had a very low DLCO even before the start of therapy. TTE showed preserved EF with IVC with >50% inspiratory collapse, arguing against fluid overload. No significant valvular heart disease and he does not have pulmonary hypertension. Pending COVID 19 but without fever or lymphopenia. Also consider radiation pneumonitis or side effect of chemotherapy Plan: -After discussion with patient and son, change full code to DNR and transition to comfort care measures per pt's wishes today. Hospice referral placed. Pt had already expressed desire for hospice earlier this admission -D/C IVF and IV antibiotics -Discussed with CM, return to SNF with hospice complicated by pt's pending COVID 19 as well as SNF with recently confirmed COVID 19 cases so SNF awaiting recs from on how to proceed (2) Acute on chronic kidney failure Impression: No improvement despite significant IVF. 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
[2019-06-13] MEDS: HYDROmorphone 0.5 MG/0.5 ML SYRINGE IVP PRN (06:21)
[2019-06-13] MEDS: HYDROmorphone 1 MG/ML CARPUJECT IVP PRN ×3 (09:27→23:30)
[2019-06-13] MEDS ORDERED: HYDROmorphone 0.5 MG/0.5 ML SYRINGE IVP ONE (10:00)
--- NOTE | 2019-06-13 15:56 | PROVIDER PROGRESS NOTE ---
Subjective - Prog Note Date Prog Note Date: 06/13/19 Prog Note Time: 15:50 - Subjective Subjective: Pt is alert and reports feeling overall worse and very SOB. Prior to my visit in the AM, he had received IV Dilaudid 0.5mg at 6:21AM and stated he did not feel any difference in SOB. Discussed with RN and requested to give IV Dilaudid 1mg JOSE RAUL. Afterwards, he appeared more comfortable, not reporting SOB, and drowsy but arousable. Currently on 15L oxymask, up from 10L on 06/11, and 4L on 06/10 Current Medications - Current Medications Current Medications: Acetaminophen (Tylenol) 650 mg PO Q4HR PRN PRN Reason: Pain 1 to 4 Last Admin: 06/11/19 00:02 Dose: 650 mg Acetaminophen (Tylenol) 650 mg OR Q4H PRN PRN Reason: Fever >101 Atropine Sulfate (Isopto Atropine 1% Ophth Drops) 1 - 4 drops SL Q2H PRN PRN Reason: Excessive secretions Bisacodyl (Dulcolax) 10 mg PO DAILY PRN PRN Reason: Constipation Carboxymethylcellulose (Refresh 1% Ophth Drops) 1 drops EACHEYE QID PRN PRN Reason: Dry Eye Glycopyrrolate (Robinul) 0.2 mg SUBQ Q4H PRN PRN Reason: Excessive secretions Haloperidol (Haldol) 1 mg PO Q6H PRN PRN Reason: Nausea / Vomiting Heparin Sodium (Beef Lung) () 30 - 50 unit IVP PRN PRN PRN Reason: Port Protocol (<24 hours) Last Admin: 06/12/19 12:04 Dose: 50 unit Hydromorphone HCl (Dilaudid) 2 mg PO Q6HR PRN PRN Reason: Severe Pain, air hunger, SOB Hydromorphone HCl (Dilaudid Inj Carp) 1 mg IVP Q2H PRN PRN Reason: SOB, air hunger, pain Last Admin: 06/13/19 14:28 Dose: 1 mg Lorazepam (Ativan) 1 mg PO Q6H PRN PRN Reason: Anxiety/Agitation Lorazepam (Ativan Inj (Vial)) 1 mg IVP Q6H PRN PRN Reason: Anxiety/Agitation Last Admin: 06/12/19 16:54 Dose: 1 mg Multi-Ingred Cream/Lotion/Oil/Oint (Lubrifresh Pm Ophth Oint) 1 applic EACHEYE QPM PRN PRN Reason: Dry Eye Ondansetron HCl (Zofran Inj) 4 mg IVP Q6HR PRN PRN Reason: Nausea / Vomiting Ondansetron HCl (Zofran Odt) 4 mg TL Q6HR PRN PRN Reason: Nausea / Vomiting Oxycodone HCl (Roxicodone) 5 mg PO Q4HR PRN PRN Reason: Pain 5 to 7 Last Admin: 06/12/19 12:28 Dose: 5 mg Senna (Senokot Syrup) 8.6 mg PO BID PRN PRN Reason: Constipation Sodium Chloride (Normal Saline Flush 0.9%) 10 ml IVP PRN PRN PRN Reason: NEEDED PER PROVIDER ORDERS Last Admin: 06/11/19 03:49 Dose: 10 ml Sodium Chloride (Normal Saline Flush 0.9%) 10 ml IVP 0100,0900,1700 JAIME Last Admin: 06/12/19 16:53 Dose: 10 ml Sodium Chloride (Normal Saline Flush 0.9%) 20 ml IVP PRN PRN PRN Reason: After Blood Draw Last Admin: 06/11/19 06:20 Dose: 20 ml Objective - Vital Signs/Intake & Output Vital Signs: Vital Signs x48h Pulse Pulse Ox 06/13/19 08:02 120 H 90 L Intake & Output: Intake & Output 06/10/19 06/11/19 06/12/19 06/13/19 23:59 23:59 23:59 23:59 Intake Total 553.15 5319.684 2670.833 Output Total 920 500 Balance 553.15 4399.684 2170.833 - Objective General Appearance: positive: Alert, Moderate distress Eyes Bilateral: positive: PERRL, Conjunctivae nml Neck: positive: No JVD Respiratory: positive: Other (Mild to moderate respiratory distress, labored breathing, tachypnea. Otherwise CTAB) Cardiovascular: positive: Tachycardia Abdomen: positive: Non-tender Skin: positive: No rash Extremities: positive: No pedal edema - Lab Results Fish Bones: 06/12/19 06:45 06/12/19 06:45 - Diagnostic Imaging Diagnostic Imaging Results: positive: Final report reviewed (Imaging personally reviewed) Assessment/Plan - Problem List (1) Acute hypoxemic respiratory failure Impression: Worsening hypoxia, SOB, and extensive interstitial and airspace disease on CXR 06/12/2019 compared to previous day. Already had a very low DLCO even before the start of therapy. TTE showed preserved EF with IVC with >50% inspiratory collapse, arguing against fluid overload. No significant valvular heart disease and he does not have pulmonary hypertension. Pending COVID 19 but without fever or lymphopenia. Also consider radiation pneumonitis or side effect of chemotherapy Plan: -After discussion with patient and son on 06/12/2019, changed full code to DNR and initiated comfort care measures per pt's wishes. Hospice referral placed. Pt had already expressed desire for hospice earlier this admission -F/U COVID 19 -Changed IV morphine PRN pain and air hunger to Dilaudid PRN due to CHINO on CKD -Discussed with CM, return to SNF with hospice complicated by pt's pending COVID 19 as well as SNF with recently confirmed COVID 19 cases so SNF awaiting recs from [facility] on how to proceed (2) Acute on chronic kidney failure Admit Cr 1.8. No improvement despite significant IVF, suspect this reflects pt's new baseline. 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
--- NOTE | 2019-06-13 16:30 | PROVIDER PROGRESS NOTE ---
Subjective - Prog Note Date Prog Note Date: 06/13/19 Prog Note Time: 16:27 - Subjective Subjective: Pt reports continuing to feel improved. Feels like his legs look noticeably less swollen today compared to yesterday. Weight down to 103.9 kg from 104.2 kg yesterday Current Medications - Current Medications Current Medications: Acetaminophen (Tylenol) 650 mg PO Q4HR PRN PRN Reason: Pain 1 to 4 Last Admin: 06/11/19 00:02 Dose: 650 mg Acetaminophen (Tylenol) 650 mg [place] Q4H PRN PRN Reason: Fever >101 Atropine Sulfate (Isopto Atropine 1% Ophth Drops) 1 - 4 drops SL Q2H PRN PRN Reason: Excessive secretions Bisacodyl (Dulcolax) 10 mg PO DAILY PRN PRN Reason: Constipation Carboxymethylcellulose (Refresh 1% Ophth Drops) 1 drops EACHEYE QID PRN PRN Reason: Dry Eye Glycopyrrolate (Robinul) 0.2 mg SUBQ Q4H PRN PRN Reason: Excessive secretions Haloperidol (Haldol) 1 mg PO Q6H PRN PRN Reason: Nausea / Vomiting Heparin Sodium (Beef Lung) () 30 - 50 unit IVP PRN PRN PRN Reason: Port Protocol (<24 hours) Last Admin: 06/12/19 12:04 Dose: 50 unit Hydromorphone HCl (Dilaudid) 2 mg PO Q6HR PRN PRN Reason: Severe Pain, air hunger, SOB Hydromorphone HCl (Dilaudid Inj Carp) 1 mg IVP Q2H PRN PRN Reason: SOB, air hunger, pain Last Admin: 06/13/19 14:28 Dose: 1 mg Lorazepam (Ativan) 1 mg PO Q6H PRN PRN Reason: Anxiety/Agitation Lorazepam (Ativan Inj (Vial)) 1 mg IVP Q6H PRN PRN Reason: Anxiety/Agitation Last Admin: 06/12/19 16:54 Dose: 1 mg Multi-Ingred Cream/Lotion/Oil/Oint (Lubrifresh Pm Ophth Oint) 1 applic EACHEYE QPM PRN PRN Reason: Dry Eye Ondansetron HCl (Zofran Inj) 4 mg IVP Q6HR PRN PRN Reason: Nausea / Vomiting Ondansetron HCl (Zofran Odt) 4 mg TL Q6HR PRN PRN Reason: Nausea / Vomiting Oxycodone HCl (Roxicodone) 5 mg PO Q4HR PRN PRN Reason: Pain 5 to 7 Last Admin: 06/12/19 12:28 Dose: 5 mg Senna (Senokot Syrup) 8.6 mg PO BID PRN PRN Reason: Constipation Sodium Chloride (Normal Saline Flush 0.9%) 10 ml IVP PRN PRN PRN Reason: NEEDED PER PROVIDER ORDERS Last Admin: 06/11/19 03:49 Dose: 10 ml Sodium Chloride (Normal Saline Flush 0.9%) 10 ml IVP 0100,0900,1700 JAIME Last Admin: 06/13/19 16:48 Dose: Not Given Sodium Chloride (Normal Saline Flush 0.9%) 20 ml IVP PRN PRN PRN Reason: After Blood Draw Last Admin: 06/11/19 06:20 Dose: 20 ml Objective - Vital Signs/Intake & Output Intake & Output: Intake & Output 06/10/19 06/11/19 06/12/19 06/13/19 23:59 23:59 23:59 23:59 Intake Total 553.15 5319.684 2670.833 Output Total 920 500 Balance 553.15 4399.684 2170.833 - Lab Results Fish Bones: 06/12/19 06:45 06/12/19 06:45
[2019-06-13] MEDS: SODIUM CHLORIDE FLUSH 0.9% 10 ML SYRINGE IVP SCH ×2 (16:48→23:43)
[2019-06-14] MEDS: HYDROmorphone 1 MG/ML CARPUJECT IVP PRN ×3 (02:37→15:02)
[2019-06-14] MEDS: SODIUM CHLORIDE FLUSH 0.9% 10 ML SYRINGE IVP SCH ×2 (07:56→21:51)
--- NOTE | 2019-06-14 10:14 | PROVIDER PROGRESS NOTE ---
Subjective - Prog Note Date Prog Note Date: 06/14/19 Prog Note Time: 10:14 - Subjective Subjective: less and less responsive. Family in process of making arrangements. Current Medications - Current Medications Current Medications: Active Medications Acetaminophen (Tylenol) 650 mg PO Q4HR PRN PRN Reason: Pain 1 to 4 Last Admin: 06/11/19 00:02 Dose: 650 mg Acetaminophen (Tylenol) 650 mg [place] Q4H PRN PRN Reason: Fever >101 Atropine Sulfate (Isopto Atropine 1% Ophth Drops) 1 - 4 drops SL Q2H PRN PRN Reason: Excessive secretions Bisacodyl (Dulcolax) 10 mg PO DAILY PRN PRN Reason: Constipation Carboxymethylcellulose (Refresh 1% Ophth Drops) 1 drops EACHEYE QID PRN PRN Reason: Dry Eye Glycopyrrolate (Robinul) 0.2 mg SUBQ Q4H PRN PRN Reason: Excessive secretions Haloperidol (Haldol) 1 mg PO Q6H PRN PRN Reason: Nausea / Vomiting Heparin Sodium (Beef Lung) () 30 - 50 unit IVP PRN PRN PRN Reason: Port Protocol (<24 hours) Last Admin: 06/12/19 12:04 Dose: 50 unit Hydromorphone HCl (Dilaudid) 2 mg PO Q6HR PRN PRN Reason: Severe Pain, air hunger, SOB Hydromorphone HCl (Dilaudid Inj Carp) 1 mg IVP Q2H PRN PRN Reason: SOB, air hunger, pain Last Admin: 06/14/19 07:56 Dose: 1 mg Lorazepam (Ativan) 1 mg PO Q6H PRN PRN Reason: Anxiety/Agitation Lorazepam (Ativan Inj (Vial)) 1 mg IVP Q6H PRN PRN Reason: Anxiety/Agitation Last Admin: 06/12/19 16:54 Dose: 1 mg Multi-Ingred Cream/Lotion/Oil/Oint (Lubrifresh Pm Ophth Oint) 1 applic EACHEYE QPM PRN PRN Reason: Dry Eye Ondansetron HCl (Zofran Inj) 4 mg IVP Q6HR PRN PRN Reason: Nausea / Vomiting Ondansetron HCl (Zofran Odt) 4 mg TL Q6HR PRN PRN Reason: Nausea / Vomiting Oxycodone HCl (Roxicodone) 5 mg PO Q4HR PRN PRN Reason: Pain 5 to 7 Last Admin: 06/12/19 12:28 Dose: 5 mg Senna (Senokot Syrup) 8.6 mg PO BID PRN PRN Reason: Constipation Sodium Chloride (Normal Saline Flush 0.9%) 10 ml IVP PRN PRN PRN Reason: NEEDED PER PROVIDER ORDERS Last Admin: 06/11/19 03:49 Dose: 10 ml Sodium Chloride (Normal Saline Flush 0.9%) 10 ml IVP 0100,0900,1700 JAIME Last Admin: 06/13/19 23:43 Dose: 10 ml Sodium Chloride (Normal Saline Flush 0.9%) 20 ml IVP PRN PRN PRN Reason: After Blood Draw Last Admin: 06/11/19 06:20 Dose: 20 ml Chlorthalidone 25 mg PO DAILY 03/18/14 Cholecalciferol (Vitamin D3) [Vitamin D] 1,000 unit PO DAILY 03/18/14 Cyanocobalamin (Vitamin B-12) [B-12] 1,000 mcg IM Q30D 03/18/14 Midodrine HCl 5 mg PO BIDWM 05/19/19 Multivitamin [Multiple Vitamins] 1 tab PO DAILY 05/26/19 Potassium Chloride [K-Dur] 20 meq PO DAILYWM 06/02/19 Acetaminophen [Tylenol] 650 mg PO Q6H PRN 06/10/19 Aspirin [Aspirin EC] 81 mg PO DAILY 06/10/19 CARBOplatin [Paraplatin] 139 mg IV Q7D 06/10/19 Fludrocortisone Acetate 0.1 mg PO DAILY 06/10/19 Nitroglycerin [Nitrostat] 0.4 mg SL Q5MIN PRN 06/10/19 Ondansetron Odt [Zofran Odt] 4 mg PO Q4H PRN 06/10/19 PACLitaxeL [Paclitaxel] 59 mg IV Q7D 06/10/19 Sodium Chloride 0.45 % [Sodium Chloride] 1,000 ml IV TH 06/10/19 bisoproloL fumarate [Bisoprolol Fumarate] 2.5 mg PO DAILY 06/10/19 Objective - Vital Signs/Intake & Output Reviewed Vital Signs: Yes Intake & Output: Intake & Output 06/11/19 06/12/19 06/13/19 03/23/20 23:59 23:59 23:59 23:59 Intake Total 5319.684 2670.833 Output Total 920 500 200 Balance 4399.684 2170.833 -200 - Objective General Appearance: positive: Lethargic Eyes Bilateral: positive: PERRL ENT: positive: Dry mucous membranes Neck: positive: No JVD. negative: Stiff neck Respiratory: positive: Rales, Rhonchi, Other (respiratory distress being treated w o2 and morphine) Cardiovascular: positive: Regular rate & rhythm, Tachycardia. negative: Gallop/S4, Friction rub Skin: positive: Warm, Dry Extremities: positive: Pedal edema Neurologic/Psychiatric: positive: Disoriented to person, Disoriented to place, Disoriented to time, Weakness - Lab Results Fish Bones: 06/12/19 06:45 06/12/19 06:45 ABX Reporting Has patient been on IV antibiotics over the past 48 hours?: No Assessment/Plan - Problem List (1) Acute respiratory failure with hypoxia Impression: Initially the patient was admitted as hypoxia where we were concerned of either pneumonia, Covid 19, or congestive heart failure. He was adamant that he wanted to be kept alive until June 22 for financial reasons due to his jail plan. Over the weekend he has changed his mind. He has worsened with shortness of breath, weakness, and worsening hypoxia, SOB, and extensive interstitial and airspace disease on CXR 06/12/2019 compared to previous day. Already had a very low DLCO even before the start of therapy. TTE showed preserved EF with IVC with >50% inspiratory collapse, arguing against fluid overload. No significant valvular heart disease and he does not have pulmonary hypertension. Pending COVID 19 but without fever or lymphopenia. Also consider radiation pneumonitis or side effect of chemotherapy Plan: -After discussion with patient and son on 06/12/2019, changed full code to DNR and initiated comfort care measures per pt's wishes. Hospice referral placed. Pt had already expressed desire for hospice earlier this admission -F/U COVID 19 -Changed IV morphine PRN pain and air hunger to Dilaudid PRN due to CHINO on CKD -Discussed with CM, return to SNF with hospice complicated by pt's pending COVID 19 as well as SNF with recently confirmed COVID 19 cases so SNF awaiting recs fr [facility] on how to proceed today. CM is still in discussion with family. (2) Acute on chronic kidney failure Admit Cr 1.8. No improvement despite significant IVF, suspect this reflects pt's new baseline. Cr 0.9 on 05/12/2019. No longer following since comfort. 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 Transitioned to comfort. Qualifiers: Laterality: right Qualified Code(s): C34.91 - Malignant neoplasm of unspecified part of right bronchus or lung (4) Anemia due to antineoplastic chemotherapy Improved after 2U PRBC transfusions but no longer following. transitioned to comfort. (5) Hypokalemia>no longer following (6) Interstitial lung disease>no longer following Low DLCO, marked findings on CXR (7) Protein calorie malnutrition>no longer treating. Suspect related to stage III lung cancer, chemotherapy, and age
[2019-06-14] MEDS: SODIUM CHLORIDE FLUSH 0.9% 10 ML SYRINGE IVP PRN (15:06)
[2019-06-15] MEDS: SODIUM CHLORIDE FLUSH 0.9% 10 ML SYRINGE IVP SCH ×2 (01:11→09:07)
[2019-06-15] MEDS: SODIUM CHLORIDE FLUSH 0.9% 10 ML SYRINGE IVP PRN ×3 (01:26→05:33)
[2019-06-15] MEDS: LORazepam 2 MG/ML VIAL IVP PRN (01:26)
[2019-06-15] MEDS: HYDROmorphone 1 MG/ML CARPUJECT IVP PRN ×3 (01:57→11:48)
--- NOTE | 2019-06-15 12:16 | Discharge Plan ---
Discharge Plan Problem Reviewed?: Yes Disposition: 20 Condition: Stable No Smoking: If you smoke, Please STOP! Call for help. Follow-up with: Miki Alfred MD [Primary Care Provider] -
--- NOTE | 2019-06-15 12:18 | DISCHARGE SUMMARY ---
Discharge Summary Admit Date: 06/10/19 Discharge Date: 06/15/19 Discharging Provider: Dr Uyen Lay Primary Care Provider: Dr Miki Alfred Code Status: Do Not Attempt Resuscitation Discharge Disposition: 20 - HPI History of Present Illness: This is an 83-year-old white male with a history of CAD, HTN, sleep apnea onb Cpap, squamous cell cancer of the lung, stage IIIb diagnosed November 2018, For which he underwent chemo therapy and radiation, had [place]. [place] [facility] [place] until he asked to please come to [facility] this month, to be easier for his for travel. 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 He has orthostatic hypotension and gets near syncopal when he tries to walk. He has had a 35 pound weight loss since the cancer was diagnosed and now has no appetite, just eating ice chips. 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 The last time he was out of bed was 3-4 weeks ago. He also had acute on chronic kidney failure and electrolyte imbalance as complications of the cancer treatment. In the recent 4 days he developed a dry cough with increasing shortness of breath, and was started on oxygen He denied fever or chills. He was sent to the emergency room when he had worsening dyspnea and in the ER was found to have a temperature of 37.5C, pulse 101, oxygen saturation 84% on room air, and 94% on 2 L nasal cannula. He appeared very debilitated, was so weak he was speaking in a whisper. Chest x-ray showed increased interstitial markings, peribronchial cuffing and a right-sided pleural effusion which was chronic. Labs showed K of 2.3, BUN/creat 68/1.7, Hgb was 6.5 There was concerned that he had an acute COVID viral pneumonia. He underwent COVID swabbing, blood cultures were done, started on IV fluids and was admitted. - HOSPITAL COURSE Hospital Course: (1) Acute Hypoxemic respiratory failure [place] to be multifactorial: from anemia, new interstitial changes on x-ray. He already had a very low DLCO even before the start of lung cancer therapy. An Echocardiogram was done to make sure he does not have congestive heart failure and his ejection fraction is 55 to 60%, there was no significant valvular heart disease and he did not have pulmonary hypertension. The COVID swab was still pending at the time of this writing. He had no fever, no leukopenia, and did not meet criteria for the disease other than his hypoxia and abnormal CXR. He was in respiratory isolation. He became less alert and the family requested that he have Comfort Care measures begun. (2) Interstitial lung disease The low DLCO preceded this admission. Several repeat CXRs were done and each showed interval worsening, until on 06/12/19 it was read as both interstitial and airspace infiltrates. His oxygen needs increased from 2L to 4L to 10L to 15L O2 by mask as he also became less responsive. His Code status was changed from Full Code to DNR as Comfort measures were begun. On 06/15/19, there was plan to be discharged under Hospice Care, and as transport was being arranged, he here at 12 noon. The DPOA, [place], was informed. (3) Anemia due to antineoplastic chemotherapy After 2 units of blood were transfused and hydration, he felt slightly better but was still exhausted. 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 He did not want to do this, and stated that "after June 22 he would like to transition to Hospice". A Hospice referral was sent. (5) Acute on chronic kidney failure His creatinine remained at 1.8 despite IV fluids. (6) Hypokalemia He received some K riders and the Potassium went from 2.2 to 2.9. (7) Protein calorie malnutrition He had no appetite but felt like he was eating better here than at [facility] since he liked the food here better. - ALLERGIES Allergies/Adverse Reactions: Allergies Allergy/AdvReac Type Severity Reaction Status Date / Time milk AdvReac Severe Unknown Verified 06/11/19 03:32 wheat AdvReac Severe Respiratory Verified 06/11/19 03:34 - MEDICATIONS Home Medications: Ambulatory Orders Medication Instructions Recorded Confirmed Chlorthalidone 25 mg PO DAILY 03/18/14 06/10/19 Cholecalciferol (Vitamin D3) 1,000 unit PO DAILY 03/18/14 06/10/19 [Vitamin D] Cyanocobalamin (Vitamin B-12) 1,000 mcg IM Q30D 03/18/14 06/10/19 [B-12] Midodrine HCl 5 mg PO BIDWM 05/19/19 06/10/19 Multivitamin [Multiple Vitamins] 1 tab PO DAILY 05/26/19 06/10/19 Potassium Chloride [K-Dur] 20 meq PO DAILYWM 06/02/19 06/10/19 Acetaminophen [Tylenol] 650 mg PO Q6H PRN 06/10/19 06/10/19 Aspirin [Aspirin EC] 81 mg PO DAILY 06/10/19 06/10/19 CARBOplatin [Paraplatin] 139 mg IV Q7D 06/10/19 06/10/19 Fludrocortisone Acetate 0.1 mg PO DAILY 06/10/19 06/10/19 Nitroglycerin [Nitrostat] 0.4 mg SL Q5MIN PRN 06/10/19 06/10/19 Ondansetron Odt [Zofran Odt] 4 mg PO Q4H PRN 06/10/19 06/10/19 PACLitaxeL [Paclitaxel] 59 mg IV Q7D 06/10/19 06/10/19 Sodium Chloride 0.45 % [Sodium 1,000 ml IV TH 06/10/19 06/10/19 Chloride] bisoproloL fumarate [Bisoprolol 2.5 mg PO DAILY 06/10/19 06/10/19 Fumarate] - LABS Result Diagrams: 06/12/19 06:45 06/12/19 06:45
== END 2019-06-15 12:00 | disposition expired | DRG 193 ==
LOC: EDUNIT# → ED 14:26 → MS2 16:29
PROVIDERS: ADMIT Specialist; ATTEND Internal Medicine
PROC: 30233N1 Transfusion of Nonautologous Red Blood Cells into Peripheral Vein, Percutaneous Approach (ICD-10-PCS; principal; 2019-06-10)
DX: J12.89 Other viral pneumonia (principal); D64.9 Anemia, unspecified; R09.02 Hypoxemia; D69.6 Thrombocytopenia, unspecified; C34.90 Malignant neoplasm of unspecified part of unspecified bronchus or lung; R53.1 Weakness; N18.9 Chronic kidney disease, unspecified; G47.30 Sleep apnea, unspecified; J96.01 Acute respiratory failure with hypoxia; N40.0 Benign prostatic hyperplasia without lower urinary tract symptoms; D61.2 Aplastic anemia due to other external agents; D61.810 Antineoplastic chemotherapy induced pancytopenia; E43 Unspecified severe protein-calorie malnutrition; J84.9 Interstitial pulmonary disease, unspecified; C34.31 Malignant neoplasm of lower lobe, right bronchus or lung; N17.9 Acute kidney failure, unspecified; R17 Unspecified jaundice; B97.29 Other coronavirus as the cause of diseases classified elsewhere; E87.6 Hypokalemia; D51.0 Vitamin B12 deficiency anemia due to intrinsic factor deficiency; W88.1XXA Exposure to radioactive isotopes, initial encounter; D64.81 Anemia due to antineoplastic chemotherapy; T45.1X5A Adverse effect of antineoplastic and immunosuppressive drugs, initial encounter; Y92.531 Health care provider office as the place of occurrence of the external cause; I12.9 Hypertensive chronic kidney disease with stage 1 through stage 4 chronic kidney disease, or unspecified chronic kidney disease; N18.3 Chronic kidney disease, stage 3 (moderate); R62.7 Adult failure to thrive; Z68.25 Body mass index [BMI] 25.0-25.9, adult; G47.33 Obstructive sleep apnea (adult) (pediatric); I95.1 Orthostatic hypotension; I48.91 Unspecified atrial fibrillation; I25.10 Atherosclerotic heart disease of native coronary artery without angina pectoris; H49.01 Third [oculomotor] nerve palsy, right eye; Z74.09 Other reduced mobility; G62.89 Other specified polyneuropathies; R26.89 Other abnormalities of gait and mobility; R16.1 Splenomegaly, not elsewhere classified; Z66 Do not resuscitate; Z51.5 Encounter for palliative care; Z79.82 Long term (current) use of aspirin; Z79.899 Other long term (current) drug therapy; Z95.5 Presence of coronary angioplasty implant and graft; Z92.3 Personal history of irradiation; Z90.79 Acquired absence of other genital organ(s); R60.9 Edema, unspecified
CPT/HCPCS: 36415; 71045; 80048; 80053; 81001; 81599; 83605; 83690; 83735; 83880; 84100; 85025; 86850; 86900; 86901; 86920; 87040; 87275; 87276; 93306; 99285; A9270; J1170; J2060; P9016; U0002; 81003; 87086